=== PATIENT | female | born 1935 | race Caucasian/White ===

== ENCOUNTER → 2016-11-29 | Outpatient (RCR) | payer MEDICARE ==
--- OUTSIDE RECORDS SUMMARY | 2016-08-31 14:06 | XMS REPORT | Continuity of Care Document ---
Author Author [facility] Organization [facility] Address Unknown Phone Unavailable Care Team Providers Care Cinder Man Name Role Phone SURESH ROUSE MD PCP Insurance Providers Payer Name Policy Number Subscriber Name Relationship Wps Medicare [id number] Argelia Prajapati 18 Self / Same As Patient Blue [employer] [facility] Supp [id number] Argelia Prajapati 18 Self / Same As Patient Advance Directives Directive Response Recorded Date/Time Advance Directives Yes 09/02/12 3:00pm Health Care Power of Bus Person Yes 08/26/12 2:30pm Organ Donor Yes 08/26/12 2:30pm Problems No known problems or medical conditions. Medications Medication Dose Route Sig Days/Qty Instructions Order Date Discontinued Date Status Glipizide 02/08/07 07/05/09 Discontinued Enalapril Maleate 02/08/07 07/05/09 Discontinued Enalapril Maleate 02/08/07 07/05/09 Discontinued [Indapamide] 02/08/07 08/24/09 Discontinued Insulin Human Regular 02/08/07 07/05/09 Discontinued Insulin Human NPH 02/08/07 07/05/09 Discontinued Insulin Human Regular 15 U SQ DAILY 15 U IN AM 07/05/09 Active Insulin Nph Human Recom 10 U SQ PRN 07/05/09 09/07/12 Discontinued Enalapril Maleate 07/05/09 06/08/10 Discontinued Enalapril Maleate 20 Mg PO DAILY 07/05/09 Active Indapamide 1.25 Mg PO DAILY 08/24/09 Active Colestipol Hcl 1 Gm PO DAILY 08/24/09 Active Omeprazole 08/24/09 06/08/10 Discontinued Ondansetron 08/24/09 06/08/10 Discontinued Omeprazole 1 Cap PO DAILY 30 Qty 10/02/11 Active Promethazine HCl 12.5 Mg PO EVERY 6 HOURS PRN 15 Qty 10/02/11 Active Insulin Glargine 35 Units SQ BEDTIME 09/07/12 Active Trimethoprim/Sulfamethoxazole 1 Ea PO TWICE A DAY 10 Days 09/07/12 Active Social History Social History Problem Response Recorded Date/Time Recent Foreign Travel N [place] 11/19/2014 2:27pm Hospital Discharge Instructions No hospital discharge instructions. Plan of Care No plan of care. Functional Status No functional status results. Allergies, Adverse Reactions, Alerts Allergen Type Severity Reaction Status Last Updated Penicillins ([id number]) Allergy Unknown RASH Active 02/08/07 Morphine Allergy Unknown N/V Active 02/10/07 Codeine Allergy Mild VOMITING Active 07/05/09 Immunizations Name Given Type Date of Pneumonia Vaccine 08/29/12 Historical Date of Influenza Vaccine 08/29/12 Historical Vital Signs No known vital signs results. Results Laboratory Results Test Name Result Units Flags Reference Collection Date/Time Result Date/ Time Comments White Blood Count 6.0 10^3/uL 4.3-11.0 01/15/2015 1:17pm 01/15/2015 1: 23pm Red Blood Count 4.38 10^6/uL 4.35-5.85 01/15/2015 1:01/15/2015 1: 23pm Hemoglobin 12.8 G/DL 11.5-16.0 01/15/2015 1:01/15/2015 1:23pm Hematocrit 38 % 35-52 01/15/2015 1:pm 01/15/2015 1:23pm Mean Corpuscular Volume 86 FL 80-99 01/15/2015 1:pm 01/15/2015 1: 23pm Mean Corpuscular Hemoglobin 29 PG 25-34 01/15/2015 1:17pm 01/15/2015 1: 23pm Mean Corpuscular Hemoglobin Concent 34 G/DL 32-36 01/15/2015 1:pm 09/2015 1:23pm Red Cell Distribution Width 13.5 % 10.0-14.5 01/15/2015 1:172014 1:23pm Platelet Count 137 10^3/uL 130-400 01/15/2015 1:01/15/2015 1:23pm Mean Platelet Volume 12.5 FL H 7.4-10.4 01/15/2015 1:pm 01/15/2015 1: 23pm Neutrophils (%) (Auto) 79 % H 42-75 01/15/2015 1:01/15/2015 1:23pm Lymphocytes (%) (Auto) 13 % 12-44 01/15/2015 1:pm 01/15/2015 1:23pm Monocytes (%) (Auto) 7 % 0-12 01/15/2015 1:pm 01/15/2015 1:23pm Eosinophils (%) (Auto) 1 % 0-10 01/15/2015 1:17pm 01/15/2015 1:23pm Basophils (%) (Auto) 0 % 0-10 01/15/2015 1:01/15/2015 1:23pm Neutrophils # (Auto) 4.8 X 10^3 1.8-7.8 01/15/2015 1:pm 01/15/2015 1: 23pm Lymphocytes # (Auto) 0.8 X 10^3 L 1.0-4.0 01/15/2015 1:pm 01/15/2015 1: 23pm Monocytes # (Auto) 0.4 X 10^3 0.0-1.0 01/15/2015 1:pm 01/15/2015 1: 23pm Eosinophils # (Auto) 0.0 10^3/uL 0.0-0.3 01/15/2015 1:pm 01/15/2015 1 :23pm Basophils # (Auto) 0.0 10^3/uL 0.0-0.1 01/15/2015 1:pm 01/15/2015 1: 23pm Sodium Level 137 MMOL/L 135-145 01/15/2015 1:pm 01/15/2015 2:00pm Potassium Level 3.7 MMOL/L 3.6-5.0 01/15/2015 1:01/15/2015 2:00pm Chloride Level 104 MMOL/L 98-107 01/15/2015 1:pm 01/15/2015 2:00pm Carbon Dioxide Level 23 MMOL/L 21-32 01/15/2015 1:pm 01/15/2015 2: 00pm Blood Urea Nitrogen 14 MG/DL 7-18 01/15/2015 1:pm 01/15/2015 2:00pm Creatinine 1.02 MG/DL 0.60-1.30 01/15/2015 1:pm 01/15/2015 2:00pm BUN/Creatinine Ratio 14 01/15/2015 1:pm 01/15/2015 2:00pm Estimat Glomerular Filtration Rate 52 01/15/2015 1:pm 01/15/2015 2:00pm GFR INTERPRETIVE DATA UNITS FOR ESTIMATED GFR (eGFR): mL/min/1.73 M2 REFERENCE RANGE FOR ESTIMATED GFR (eGFR) eGFR NORMAL eGFR >60 MODERATELY DECREASED eGFR 30-59 SEVERLY DECREASED eGFR 15-29 KIDNEY FAILURE <15 (OR DIALYSIS) Glucose Level 282 MG/DL H 70-105 01/15/2015 1:pm 01/15/2015 2:00pm Calcium Level 9.4 MG/DL 8.5-10.1 01/15/2015 1:pm 01/15/2015 2:00pm Total Bilirubin 0.5 MG/DL 0.1-1.0 01/15/2015 1:pm 01/15/2015 2:00pm Alkaline Phosphatase 77 U/L 40-136 01/15/2015 1:pm 01/15/2015 2:00pm Aspartate Amino Transf (AST/SGOT) 20 U/L 5-34 01/15/2015 1:pm 2014 2:00pm Alanine Aminotransferase (ALT/SGPT) 23 U/L 0-55 01/15/2015 1:pm 01/15 2:00pm Total Protein 6.5 G/DL 6.4-8.2 01/15/2015 1:pm 01/15/2015 2:00pm Albumin 4.0 G/DL 3.2-4.5 01/15/2015 1:pm 01/15/2015 2:00pm Procedures No known history of procedures. Encounters Encounter Location Date/Time Discharged Recurring Via [facility] 01/15/15 12:58pm
[2016-10-18 13:55] LABS: BASOPHILS % (AUTO) 0 % (0-10); EOSINOPHILS # (AUTO) 0.1 10^3/uL (0.0-0.3); EOSINOPHILS % (AUTO) 2 % (0-10); LYMPHOCYTES # (AUTO) 1.2 X 10^3 (1.0-4.0); LYMPHOCYTES % (AUTO) 23 % (12-44); MEAN CORPUSCULAR HEMOGLOBIN 30 PG (25-34); MEAN CORPUSCULAR HGB CONC 34 G/DL (32-36); MEAN CORPUSCULAR VOLUME 87 FL (80-99); MEAN PLATELET VOLUME 12.2 FL (7.4-10.4); MONOCYTES # (AUTO) 0.4 X 10^3 (0.0-1.0); MONOCYTES % (AUTO) 8 % (0-12); NEUTROPHILS # (AUTO) 3.6 X 10^3 (1.8-7.8); NEUTROPHILS % (AUTO) 67 % (42-75); PLATELET COUNT 102 10^3/uL (130-400); RED BLOOD COUNT 4.37 10^6/uL (4.35-5.85); RED CELL DISTRIBUTION WIDTH 13.5 % (10.0-14.5); WHITE BLOOD COUNT 5.4 10^3/uL (4.3-11.0)
[2016-10-18 14:24] LABS: ALBUMIN 4.3 G/DL (3.2-4.5); BILIRUBIN,TOTAL 0.5 MG/DL (0.1-1.0); CALCIUM 9.6 MG/DL (8.5-10.1); CREATININE SERUM 0.95 MG/DL (0.60-1.30); POTASSIUM 3.5 MMOL/L (3.6-5.0); TOTAL PROTEIN 6.5 G/DL (6.4-8.2)
[~2016-11-29] MED LIST: COLE1TAB PO; ENAL20TA; ENLP10T; ENLP10T PO; GLIP-123; INDA1.25 PO; INDAPAMIDE; INSHRV; INSHRV SQ; INSN1U SQ; INSU100C4 SQ; INSU100V11; INSU100V13 SQ; NPH,100V SQ; OMEP20CA12 PO; OMEP20CA6; ONDA4TAB11; PRM25T PO; SCR1T1 PO; SULF1TAB38 PO
== END | disposition home or self-care (01) ==
LOC: ONC 08-31 14:03
PROVIDERS: ATTEND Internal Medicine Hematology & Oncology
DX: Z08 Encounter for follow-up examination after completed treatment for malignant neoplasm (principal); Z85.42 Personal history of malignant neoplasm of other parts of uterus; Z85.3 Personal history of malignant neoplasm of breast; Z79.899 Other long term (current) drug therapy; Z45.2 Encounter for adjustment and management of vascular access device
CPT/HCPCS: 36591; 80053; 85025; 86300; 86304; 96523; 99213

== ENCOUNTER → 2017-01-10 | Outpatient (CLI) | payer MEDICARE ==
--- OUTSIDE RECORDS SUMMARY | 2017-01-10 13:34 | XMS REPORT | Continuity of Care Document ---
Author Author [facility] Organization [facility] Address Unknown Phone Unavailable Care Team Providers Care Tariff Inspector Name Role Phone SURESH ROUSE MD PCP Insurance Providers Payer Name Policy Number Subscriber Name Relationship Wps Medicare [id number] Argelia Prajapati 18 Self / Same As Patient Blue Cross [facility] Supp [id number] Argelia Prajapati 18 Self / Same As Patient Advance Directives Directive Response Recorded Date/Time Advance Directives Yes 09/02/12 3:00pm Health Care Power of Therapy Assistant Yes 08/26/12 2:30pm Organ Donor Yes 08/26/12 [...] Type Severity Reaction Status Last Updated Penicillins ([id number]) Allergy Unknown RASH Active 02/08/07 Morphine Allergy [...] Encounters Encounter Location Date/Time Discharged Recurring Via [facility] 01/15/15 12:58pm
== END ==
LOC: LAB 13:31
PROVIDERS: ATTEND Family Medicine
DX: E11.9 Type 2 diabetes mellitus without complications (principal)
CPT/HCPCS: 83036

== ENCOUNTER 2017-03-28 12:44 | Outpatient (RCR) | payer MEDICARE ==
--- OUTSIDE RECORDS SUMMARY | 2017-01-10 13:28 | XMS REPORT | Continuity of Care Document ---
Author Author [facility] Organization [facility] Address Unknown Phone Unavailable Care Team Providers Care Solution Manager Name Role Phone SURESH ROUSE MD PCP Insurance Providers Payer Name Policy Number Subscriber Name Relationship Wps Medicare [id number] Argelia Prajapati 18 Self / Same As Patient Blue Cross [facility] Supp [id number] Argelia Prajapati 18 Self / Same As Patient Advance Directives Directive Response Recorded Date/Time Advance Directives Yes 09/02/12 3:00pm Health Care Power of Acetylene Operator Yes 08/26/12 2:30pm Organ Donor Yes 08/26/12 [...] Type Severity Reaction Status Last Updated Penicillins ([id number]) Allergy Unknown RASH Active 02/08/07 Morphine Allergy [...] Encounters Encounter Location Date/Time Discharged Recurring Via [facility] 01/15/15 12:58pm
[2017-01-10 13:41] LABS: BASOPHILS % (AUTO) 0 % (0-10); EOSINOPHILS # (AUTO) 0.1 10^3/uL (0.0-0.3); EOSINOPHILS % (AUTO) 2 % (0-10); LYMPHOCYTES # (AUTO) 1.1 X 10^3 (1.0-4.0); LYMPHOCYTES % (AUTO) 21 % (12-44); MEAN CORPUSCULAR HEMOGLOBIN 29 PG (25-34); MEAN CORPUSCULAR HGB CONC 33 G/DL (32-36); MEAN CORPUSCULAR VOLUME 88 FL (80-99); MEAN PLATELET VOLUME 12.5 FL (7.4-10.4); MONOCYTES # (AUTO) 0.4 X 10^3 (0.0-1.0); MONOCYTES % (AUTO) 8 % (0-12); NEUTROPHILS # (AUTO) 3.8 X 10^3 (1.8-7.8); NEUTROPHILS % (AUTO) 70 % (42-75); PLATELET COUNT 81 10^3/uL (130-400); RED BLOOD COUNT 4.28 10^6/uL (4.35-5.85); RED CELL DISTRIBUTION WIDTH 13.7 % (10.0-14.5); WHITE BLOOD COUNT 5.4 10^3/uL (4.3-11.0)
[2017-01-10 14:18] LABS: BILIRUBIN,TOTAL 0.4 MG/DL (0.1-1.0); CALCIUM 9.2 MG/DL (8.5-10.1); CREATININE SERUM 1.01 MG/DL (0.60-1.30); POTASSIUM 3.9 MMOL/L (3.6-5.0); TOTAL PROTEIN 6.5 G/DL (6.4-8.2)
[2017-03-28 13:01] LABS: BASOPHILS % (AUTO) 0 % (0-10); EOSINOPHILS # (AUTO) 0.2 10^3/uL (0.0-0.3); EOSINOPHILS % (AUTO) 3 % (0-10); LYMPHOCYTES # (AUTO) 1.6 X 10^3 (1.0-4.0); LYMPHOCYTES % (AUTO) 27 % (12-44); MEAN CORPUSCULAR HEMOGLOBIN 30 PG (25-34); MEAN CORPUSCULAR HGB CONC 33 G/DL (32-36); MEAN CORPUSCULAR VOLUME 89 FL (80-99); MEAN PLATELET VOLUME 12.3 FL (7.4-10.4); MONOCYTES # (AUTO) 0.4 X 10^3 (0.0-1.0); MONOCYTES % (AUTO) 7 % (0-12); NEUTROPHILS # (AUTO) 3.8 X 10^3 (1.8-7.8); NEUTROPHILS % (AUTO) 64 % (42-75); PLATELET COUNT 109 10^3/uL (130-400); RED BLOOD COUNT 4.24 10^6/uL (4.35-5.85); RED CELL DISTRIBUTION WIDTH 13.5 % (10.0-14.5); WHITE BLOOD COUNT 5.9 10^3/uL (4.3-11.0)
[2017-03-28 13:24] LABS: ALANINE AMINOTRANSFERASE 14 U/L (0-55); ALBUMIN 4.1 G/DL (3.2-4.5); ANION GAP 10 MMOL/L (5-14); ASPARTATE AMINO TRANSFERASE 19 U/L (5-34); BILIRUBIN,TOTAL 0.5 MG/DL (0.1-1.0); BLOOD UREA NITROGEN 13 MG/DL (7-18); BUN/CREATININE RATIO 15; CALCIUM 9.3 MG/DL (8.5-10.1); CARBON DIOXIDE 23 MMOL/L (21-32); CHLORIDE 108 MMOL/L (98-107); CREATININE SERUM 0.88 MG/DL (0.60-1.30); GFR ESTIMATED > 60; GLUCOSE 190 MG/DL (70-105); POTASSIUM 3.6 MMOL/L (3.6-5.0); SODIUM 141 MMOL/L (135-145); TOTAL PROTEIN 6.5 G/DL (6.4-8.2)
[2017-03-28 13:44] LABS: THYROID STIMULATING HORMONE 0.95 UIU/ML (0.35-4.94)
== END 2017-04-10 | disposition home or self-care (01) ==
LOC: ONC 12:44
PROVIDERS: ATTEND Internal Medicine Hematology & Oncology
DX: Z08 Encounter for follow-up examination after completed treatment for malignant neoplasm (principal); Z85.42 Personal history of malignant neoplasm of other parts of uterus; Z85.3 Personal history of malignant neoplasm of breast; Z79.899 Other long term (current) drug therapy; Z45.2 Encounter for adjustment and management of vascular access device
CPT/HCPCS: 36591; 80053; 84443; 85025; 86300; 86304; 96523; 99213

== ENCOUNTER → 2017-05-02 | Outpatient (CLI) | payer MEDICARE ==
--- NOTE | 2017-05-02 13:42 | Diagnostic Imaging Report ---
Two views of the left hip. INDICATION: Left hip pain. FINDINGS: There is severe joint space loss and the left hip particularly along the central and lateral aspect with subchondral sclerosis and subchondral cyst formation. Minimal osteophytes are noted. No fracture or dislocation. No radiopaque foreign body. IMPRESSION: Advanced left hip osteoarthritis. Dictated by: Dictated on workstation # [id number]
== END ==
LOC: RAD 13:16
PROVIDERS: ATTEND Nurse Practitioner Family
DX: M16.12 Unilateral primary osteoarthritis, left hip (principal)
CPT/HCPCS: 73502

== ENCOUNTER 2017-07-18 10:42 | Outpatient (RCR) | payer MEDICARE | END 2017-08-04 13:28 | disposition home or self-care (01) | LOC: ONC 10:42 | PROVIDERS: ATTEND Internal Medicine Hematology & Oncology | DX: Z08 Encounter for follow-up examination after completed treatment for malignant neoplasm (principal); Z85.42 Personal history of malignant neoplasm of other parts of uterus; Z85.3 Personal history of malignant neoplasm of breast; Z79.899 Other long term (current) drug therapy; Z45.2 Encounter for adjustment and management of vascular access device | CPT/HCPCS: 96523 ==

== ENCOUNTER 2017-09-23 10:57 | Outpatient (RCR) | payer MEDICARE ==
[2017-08-09 13:24] LABS: BASOPHILS % (AUTO) 0 % (0-10); EOSINOPHILS # (AUTO) 0.1 10^3/uL (0.0-0.3); EOSINOPHILS % (AUTO) 2 % (0-10); HEMATOCRIT 37 % (35-52); HEMOGLOBIN 12.6 G/DL (11.5-16.0); LYMPHOCYTES # (AUTO) 1.1 X 10^3 (1.0-4.0); LYMPHOCYTES % (AUTO) 21 % (12-44); MEAN CORPUSCULAR HEMOGLOBIN 30 PG (25-34); MEAN CORPUSCULAR HGB CONC 34 G/DL (32-36); MEAN CORPUSCULAR VOLUME 89 FL (80-99); MEAN PLATELET VOLUME 12.8 FL (7.4-10.4); MONOCYTES # (AUTO) 0.4 X 10^3 (0.0-1.0); MONOCYTES % (AUTO) 7 % (0-12); NEUTROPHILS # (AUTO) 3.7 X 10^3 (1.8-7.8); NEUTROPHILS % (AUTO) 70 % (42-75); PLATELET COUNT 121 10^3/uL (130-400); RED BLOOD COUNT 4.17 10^6/uL (4.35-5.85); RED CELL DISTRIBUTION WIDTH 13.5 % (10.0-14.5); WHITE BLOOD COUNT 5.3 10^3/uL (4.3-11.0)
[2017-08-09 13:45] LABS: BILIRUBIN,TOTAL 0.4 MG/DL (0.1-1.0); CALCIUM 9.3 MG/DL (8.5-10.1); CREATININE SERUM 0.99 MG/DL (0.60-1.30); POTASSIUM 3.8 MMOL/L (3.6-5.0); TOTAL PROTEIN 6.7 GM/DL (6.4-8.2)
== END 2017-11-07 | disposition home or self-care (01) ==
LOC: ONC 10:57
PROVIDERS: ATTEND Internal Medicine Hematology & Oncology
DX: Z08 Encounter for follow-up examination after completed treatment for malignant neoplasm (principal); Z85.42 Personal history of malignant neoplasm of other parts of uterus; Z85.3 Personal history of malignant neoplasm of breast; D69.6 Thrombocytopenia, unspecified; E11.9 Type 2 diabetes mellitus without complications; I10 Essential (primary) hypertension; I51.7 Cardiomegaly; E04.2 Nontoxic multinodular goiter; Z90.13 Acquired absence of bilateral breasts and nipples; Z90.710 Acquired absence of both cervix and uterus; Z92.21 Personal history of antineoplastic chemotherapy; Z79.899 Other long term (current) drug therapy; Z45.2 Encounter for adjustment and management of vascular access device
CPT/HCPCS: 36415; 36591; 80053; 84443; 85025; 96523

== ENCOUNTER 2018-01-17 13:07 | Outpatient (RCR) | payer MEDICARE ==
[2018-01-17 13:32] LABS: BASOPHILS % (AUTO) 0 % (0-10); EOSINOPHILS # (AUTO) 0.1 10^3/uL (0.0-0.3); EOSINOPHILS % (AUTO) 1 % (0-10); HEMATOCRIT 37 % (35-52); HEMOGLOBIN 12.6 G/DL (11.5-16.0); LYMPHOCYTES # (AUTO) 1.1 X 10^3 (1.0-4.0); LYMPHOCYTES % (AUTO) 19 % (12-44); MEAN CORPUSCULAR HEMOGLOBIN 30 PG (25-34); MEAN CORPUSCULAR HGB CONC 35 G/DL (32-36); MEAN CORPUSCULAR VOLUME 88 FL (80-99); MEAN PLATELET VOLUME 12.6 FL (7.4-10.4); MONOCYTES # (AUTO) 0.4 X 10^3 (0.0-1.0); MONOCYTES % (AUTO) 7 % (0-12); NEUTROPHILS # (AUTO) 4.2 X 10^3 (1.8-7.8); NEUTROPHILS % (AUTO) 73 % (42-75); PLATELET COUNT 112 10^3/uL (130-400); RED BLOOD COUNT 4.14 10^6/uL (4.35-5.85); RED CELL DISTRIBUTION WIDTH 13.2 % (10.0-14.5); WHITE BLOOD COUNT 5.8 10^3/uL (4.3-11.0)
[2018-01-17 13:54] LABS: BILIRUBIN,TOTAL 0.7 MG/DL (0.1-1.0); CALCIUM 9.3 MG/DL (8.5-10.1); CREATININE SERUM 0.92 MG/DL (0.60-1.30); POTASSIUM 3.7 MMOL/L (3.6-5.0); TOTAL PROTEIN 6.4 GM/DL (6.4-8.2)
== END 2018-02-13 | disposition home or self-care (01) ==
LOC: ONC 13:07
PROVIDERS: ATTEND Internal Medicine Hematology & Oncology
DX: Z08 Encounter for follow-up examination after completed treatment for malignant neoplasm (principal); Z85.42 Personal history of malignant neoplasm of other parts of uterus; Z85.3 Personal history of malignant neoplasm of breast; Z45.2 Encounter for adjustment and management of vascular access device
CPT/HCPCS: 36591; 80053; 85025; 96523

== ENCOUNTER → 2018-05-30 | Outpatient (RCR) | payer MEDICARE | END | disposition home or self-care (01) | LOC: ONC 03-01 13:50 | PROVIDERS: ATTEND Internal Medicine Hematology & Oncology | DX: Z08 Encounter for follow-up examination after completed treatment for malignant neoplasm (principal); Z85.42 Personal history of malignant neoplasm of other parts of uterus; Z85.3 Personal history of malignant neoplasm of breast; Z45.2 Encounter for adjustment and management of vascular access device | CPT/HCPCS: 96523 ==

== ENCOUNTER 2018-07-04 12:57 | Outpatient (RCR) | payer MEDICARE ==
[2018-07-04 13:11] LABS: BASOPHILS % (AUTO) 0 % (0-10); EOSINOPHILS # (AUTO) 0.1 10^3/uL (0.0-0.3); EOSINOPHILS % (AUTO) 2 % (0-10); HEMATOCRIT 36 % (35-52); HEMOGLOBIN 12.4 G/DL (11.5-16.0); LYMPHOCYTES # (AUTO) 1.2 X 10^3 (1.0-4.0); LYMPHOCYTES % (AUTO) 21 % (12-44); MEAN CORPUSCULAR HEMOGLOBIN 31 PG (25-34); MEAN CORPUSCULAR HGB CONC 34 G/DL (32-36); MEAN CORPUSCULAR VOLUME 89 FL (80-99); MEAN PLATELET VOLUME 12.7 FL (7.4-10.4); MONOCYTES # (AUTO) 0.3 X 10^3 (0.0-1.0); MONOCYTES % (AUTO) 6 % (0-12); NEUTROPHILS % (AUTO) 71 % (42-75); PLATELET COUNT 95 10^3/uL (130-400); RED BLOOD COUNT 4.05 10^6/uL (4.35-5.85); RED CELL DISTRIBUTION WIDTH 13.3 % (10.0-14.5); WHITE BLOOD COUNT 5.6 10^3/uL (4.3-11.0)
[2018-07-04 13:46] LABS: ALBUMIN 4.2 GM/DL (3.2-4.5); BILIRUBIN,TOTAL 0.5 MG/DL (0.1-1.0); CALCIUM 9.6 MG/DL (8.5-10.1); CREATININE SERUM 1.03 MG/DL (0.60-1.30); TOTAL PROTEIN 6.6 GM/DL (6.4-8.2)
== END 2018-07-07 | disposition home or self-care (01) ==
LOC: ONC 12:57
PROVIDERS: ATTEND Internal Medicine Hematology & Oncology
DX: Z08 Encounter for follow-up examination after completed treatment for malignant neoplasm (principal); Z85.42 Personal history of malignant neoplasm of other parts of uterus; Z85.3 Personal history of malignant neoplasm of breast; D69.59 Other secondary thrombocytopenia; T45.1X5S Adverse effect of antineoplastic and immunosuppressive drugs, sequela; E11.9 Type 2 diabetes mellitus without complications; I10 Essential (primary) hypertension; K52.9 Noninfective gastroenteritis and colitis, unspecified; E04.2 Nontoxic multinodular goiter; Z90.13 Acquired absence of bilateral breasts and nipples; Z90.710 Acquired absence of both cervix and uterus; Z79.899 Other long term (current) drug therapy
CPT/HCPCS: 36591; 80053; 85025

== ENCOUNTER 2018-11-14 14:26 | Outpatient (RCR) | payer MEDICARE | END 2018-11-15 | disposition home or self-care (01) | LOC: ONC 14:26 | PROVIDERS: ATTEND Internal Medicine Hematology & Oncology | DX: Z08 Encounter for follow-up examination after completed treatment for malignant neoplasm (principal); Z85.42 Personal history of malignant neoplasm of other parts of uterus; Z85.3 Personal history of malignant neoplasm of breast; D69.59 Other secondary thrombocytopenia; T45.1X5S Adverse effect of antineoplastic and immunosuppressive drugs, sequela; E11.9 Type 2 diabetes mellitus without complications; I10 Essential (primary) hypertension; K52.9 Noninfective gastroenteritis and colitis, unspecified; E04.2 Nontoxic multinodular goiter; Z90.13 Acquired absence of bilateral breasts and nipples; Z90.710 Acquired absence of both cervix and uterus; Z79.899 Other long term (current) drug therapy; Z45.2 Encounter for adjustment and management of vascular access device | CPT/HCPCS: 96523 ==

== ENCOUNTER 2019-03-13 13:12 | Outpatient (RCR) | payer MEDICARE ==
[2018-12-19 13:12] LABS: BASOPHILS % (AUTO) 0 % (0-10); EOSINOPHILS # (AUTO) 0.1 10^3/uL (0.0-0.3); EOSINOPHILS % (AUTO) 1 % (0-10); HEMATOCRIT 37 % (35-52); HEMOGLOBIN 12.5 G/DL (11.5-16.0); LYMPHOCYTES % (AUTO) 17 % (12-44); MEAN CORPUSCULAR HEMOGLOBIN 30 PG (25-34); MEAN CORPUSCULAR HGB CONC 34 G/DL (32-36); MEAN CORPUSCULAR VOLUME 88 FL (80-99); MEAN PLATELET VOLUME 12.6 FL (7.4-10.4); MONOCYTES # (AUTO) 0.4 X 10^3 (0.0-1.0); MONOCYTES % (AUTO) 7 % (0-12); NEUTROPHILS # (AUTO) 4.3 X 10^3 (1.8-7.8); NEUTROPHILS % (AUTO) 75 % (42-75); PLATELET COUNT 101 10^3/uL (130-400); RED CELL DISTRIBUTION WIDTH 13.3 % (10.0-14.5); WHITE BLOOD COUNT 5.7 10^3/uL (4.3-11.0)
[2018-12-19 13:33] LABS: ALBUMIN 4.1 GM/DL (3.2-4.5); BILIRUBIN,TOTAL 0.5 MG/DL (0.1-1.0); CALCIUM 9.4 MG/DL (8.5-10.1); CREATININE SERUM 1.09 MG/DL (0.60-1.30); POTASSIUM 3.5 MMOL/L (3.6-5.0); TOTAL PROTEIN 6.6 GM/DL (6.4-8.2)
== END 2019-03-19 | disposition home or self-care (01) ==
LOC: ONC 13:12
PROVIDERS: ATTEND Internal Medicine Hematology & Oncology
DX: Z08 Encounter for follow-up examination after completed treatment for malignant neoplasm (principal); Z85.42 Personal history of malignant neoplasm of other parts of uterus; Z85.3 Personal history of malignant neoplasm of breast; D69.59 Other secondary thrombocytopenia; T45.1X5S Adverse effect of antineoplastic and immunosuppressive drugs, sequela; E11.9 Type 2 diabetes mellitus without complications; I10 Essential (primary) hypertension; K52.9 Noninfective gastroenteritis and colitis, unspecified; E04.2 Nontoxic multinodular goiter; Z90.13 Acquired absence of bilateral breasts and nipples; Z90.710 Acquired absence of both cervix and uterus; Z79.899 Other long term (current) drug therapy; Z45.2 Encounter for adjustment and management of vascular access device
CPT/HCPCS: 80053; 85025; 96523

== ENCOUNTER 2019-07-19 10:48 | Outpatient (RCR) | payer MEDICARE ==
[2019-06-07 15:09] LABS: BASOPHILS % (AUTO) 0 % (0-10); EOSINOPHILS % (AUTO) 0 % (0-10); HEMATOCRIT 36 % (35-52); HEMOGLOBIN 11.8 G/DL (11.5-16.0); LYMPHOCYTES # (AUTO) 0.8 X 10^3 (1.0-4.0); LYMPHOCYTES % (AUTO) 17 % (12-44); MEAN CORPUSCULAR HEMOGLOBIN 30 PG (25-34); MEAN CORPUSCULAR HGB CONC 33 G/DL (32-36); MEAN CORPUSCULAR VOLUME 90 FL (80-99); MEAN PLATELET VOLUME 12.8 FL (7.4-10.4); MONOCYTES # (AUTO) 0.3 X 10^3 (0.0-1.0); MONOCYTES % (AUTO) 7 % (0-12); NEUTROPHILS # (AUTO) 3.5 X 10^3 (1.8-7.8); NEUTROPHILS % (AUTO) 75 % (42-75); PLATELET COUNT 108 10^3/uL (130-400); RED CELL DISTRIBUTION WIDTH 13.6 % (10.0-14.5); WHITE BLOOD COUNT 4.7 10^3/uL (4.3-11.0)
[2019-06-07 15:30] LABS: ALBUMIN 4.1 GM/DL (3.2-4.5); BILIRUBIN,TOTAL 0.4 MG/DL (0.1-1.0); CALCIUM 9.6 MG/DL (8.5-10.1); CREATININE SERUM 0.94 MG/DL (0.60-1.30); POTASSIUM 3.8 MMOL/L (3.6-5.0); TOTAL PROTEIN 6.4 GM/DL (6.4-8.2)
== END 2019-07-23 | disposition home or self-care (01) ==
LOC: ONC 10:48
PROVIDERS: ATTEND Internal Medicine Hematology & Oncology
DX: Z08 Encounter for follow-up examination after completed treatment for malignant neoplasm (principal); Z85.42 Personal history of malignant neoplasm of other parts of uterus; Z85.3 Personal history of malignant neoplasm of breast; D69.59 Other secondary thrombocytopenia; T45.1X5S Adverse effect of antineoplastic and immunosuppressive drugs, sequela; E11.9 Type 2 diabetes mellitus without complications; I10 Essential (primary) hypertension; K52.9 Noninfective gastroenteritis and colitis, unspecified; E04.2 Nontoxic multinodular goiter; Z90.13 Acquired absence of bilateral breasts and nipples; Z90.710 Acquired absence of both cervix and uterus; Z79.899 Other long term (current) drug therapy; Z45.2 Encounter for adjustment and management of vascular access device
CPT/HCPCS: 36591; 80053; 85025; 96523

== ENCOUNTER → 2019-07-19 | Outpatient (CLI) | payer MEDICARE | LOC: LAB 10:57 | PROVIDERS: ATTEND Family Medicine | DX: E11.9 Type 2 diabetes mellitus without complications (principal) | CPT/HCPCS: 36415; 83036; 84443 ==

== ENCOUNTER 2019-10-11 13:11 | Outpatient (RCR) | payer MEDICARE ==
[2019-10-11] MEDS ORDERED: FLU QUADRIvalent (5+ YOA) 2019-2020 (Cancer Ctr) 0.5 ML IM ONE (13:45)
== END 2019-11-29 | disposition home or self-care (01) ==
LOC: ONC 13:11
PROVIDERS: ATTEND Internal Medicine Hematology & Oncology
DX: Z45.2 Encounter for adjustment and management of vascular access device (principal); Z79.899 Other long term (current) drug therapy; Z23 Encounter for immunization
CPT/HCPCS: 90471; 96523

== ENCOUNTER 2020-01-10 15:01 | Outpatient (RCR) | payer MEDICARE | END 2020-03-02 | disposition home or self-care (01) | LOC: ONC 15:01 | PROVIDERS: ATTEND Internal Medicine Hematology & Oncology | DX: Z45.2 Encounter for adjustment and management of vascular access device (principal); Z79.899 Other long term (current) drug therapy | CPT/HCPCS: 96523 ==

== ENCOUNTER 2021-12-04 14:45 | Inpatient (IN) | payer MEDICARE ==
[~2021-12-04] VITALS: Ht 182 cm; Wt 95.2 kg
[2021-12-04 15:05] LABS: BASOPHILS % (AUTO) 0 % (0-10); EOSINOPHILS % (AUTO) 0 % (0-10); HEMATOCRIT 34 % (35-52); HEMOGLOBIN 10.9 g/dL (11.5-16.0); LYMPHOCYTES # (AUTO) 0.5 10^3/uL (1.0-4.0); LYMPHOCYTES % (AUTO) 5 % (12-44); MEAN CORPUSCULAR HEMOGLOBIN 29 pg (25-34); MEAN CORPUSCULAR HGB CONC 32 g/dL (32-36); MEAN CORPUSCULAR VOLUME 89 fL (80-99); MEAN PLATELET VOLUME 11.8 fL (9.0-12.2); MONOCYTES # (AUTO) 0.6 10^3/uL (0.0-1.0); MONOCYTES % (AUTO) 6 % (0-12); NEUTROPHILS # (AUTO) 7.8 10^3/uL (1.8-7.8); NEUTROPHILS % (AUTO) 88 % (42-75); PLATELET COUNT 231 10^3/uL (130-400); WHITE BLOOD COUNT 8.8 10^3/uL (4.3-11.0)
[2021-12-04 15:14] LABS: ALBUMIN 3.4 GM/DL (3.2-4.5)
[2021-12-04 15:17] LABS: TOTAL PROTEIN 6.9 GM/DL (6.4-8.2)
[2021-12-04 15:18] LABS: BILIRUBIN,TOTAL 0.5 MG/DL (0.1-1.0)
--- NOTE | 2021-12-04 15:19 | ED Lower Extremity ---
General Chief Complaint: Lower Extremity Stated Complaint: R FOOT WOUND Nursing Triage Note: PT PRESENTS TO ED VIA EMS FROM HOME WITH COMPLAINTS OF R FOOT WOUND THAT DESPITE ORAL ANTIBIOTICS X 2 WEEKS HAS NOT IMPROVED. Source: patient Exam Limitations: no limitations History of Present Illness Date Seen by Provider: Dec 04, 2021 Time Seen by Provider: 15:16 Initial Comments 86-year-old female patient of Dr. HORVATH who lives at home with diabetes presents to ER by EMS after being called by home health with reports of a wound to the medial aspect of the right foot over the first MTP joint. Onset: just prior to arrival Severity: moderate Pain/Injury Location: right foot Modifying Factors: Improves With Cold Therapy Allergies and Home Medications Allergies Coded Allergies: codeine (Unverified Allergy, Mild, VOMITING, 07/05/09) Penicillins (Unverified Allergy, Unknown, RASH, 02/08/07) STATES ITCHED AND "DROVE HER CRAZY" morphine (Verified Allergy, Unknown, N/V, 02/10/07) orange (Unverified Adverse Reaction, Unknown, 09/17/16) Patient Home Medication List Home Medication List Reviewed: Yes Colestipol Hcl (Colestipol Hcl) 1 Gm Tablet, 1 GM PO DAILY, (Reported) Entered as Reported by: RAMESH MACDONALD on 08/24/09 1700 Enalapril Maleate (Vasotec Po) 10 Mg Tab, 20 MG PO DAILY, (Reported) Entered as Reported by: GILBERT WALTERS on 07/05/09 1620 Indapamide (Indapamide) 1.25 Mg Tablet, 1.25 MG PO DAILY PRN for SYSTOLIC BLOOD PRESSURE, (Reported) Entered as Reported by: RAMESH MACDONALD on 08/24/09 1700 Insulin Human Regular (Novolin R Vial) 10 Unit/0.1 Ml Soln, 10 U SQ BID, (Reported) Entered as Reported by: GILBERT WALTERS on 07/05/09 1619 Insulin NPH Human Isophane (Novolin N) 100 Unit/1 Ml Vial, 10 UNIT SQ BID, (Reported) Entered as Reported by: ANALI WORTHY on 09/17/16 1836 Omeprazole (Omeprazole) 20 Mg Capsule., 1 CAP PO DAILY, (Reported) Entered as Reported by: JASIEL PETERS on 10/02/11 0906 Review of Systems Constitutional: see HPI EENTM: see HPI Respiratory: no symptoms reported Cardiovascular: no symptoms reported Genitourinary: no symptoms reported Musculoskeletal: see HPI Skin: no symptoms reported Psychiatric/Neurological: No Symptoms Reported Past Auuknrs-Wxopor-Emqthd Hx Patient Social History Tobacco Use?: No Substance use?: No Alcohol Use?: No Pt feels they are or have been: No Immunizations Up To Date Influenza Vaccine Up-to-Date: Yes; Up-to-Date First/Initial COVID19 Vaccinat: 12/28 Second COVID19 Vaccination Srini: 01/25 COVID19 Vaccine Hot [employer]orer: moderna Seasonal Allergies Seasonal Allergies: No Past Medical History Surgery/Hospitalization HX: pmh: dm, bp, c-diff sx: hyst, gallbladder, r hip Abdominal, Breast, Gallbladder Hypertension Reproductive Disorders: Yes Gastroesophageal Reflux Diabetes, Non-Insulin dep Breast Physical Exam Vital Signs Vital Signs - First Documented 12/04/21 14:57 Temp 36.6 Pulse 104 Resp 18 B/P (MAP) 172/73 (106) Pulse Ox 100 Capillary Refill : Less Than 3 Seconds Height, Weight, BMI Height: 6'" Weight: 240lbs. oz. 108.969318be; 29.00 BMI Method:Stated General Appearance: WD/WN, no apparent distress Neck: non-tender, full range of motion Respiratory: normal breath sounds, no respiratory distress, no accessory muscle use Hips: bilateral hip non-tender, bilateral hip normal inspection, bilateral hip normal range of motion Legs: bilateral leg non-tender, bilateral leg normal inspection, bilateral leg normal range of motion Knees: bilateral knee non-tender, bilateral knee normal inspection, bilateral knee normal range of motion Ankles: bilateral ankle non-tender, bilateral ankle normal inspection, bilateral ankle normal range of motion Feet: left foot other (She denies any pain but there is a rather large ulcer to the medial aspect of the left foot with exposed open fracture of the first phalanx. Culture was collected.) Progress/Results/Core Measures Results/Orders Lab Results Laboratory Tests Test 12/04/21 14:52 12/04/21 15:00 Range/Units White Blood Count 8.8 4.3-11.0 10^3/uL Red Blood Count 3.80 3.80-5.11 10^6/uL Hemoglobin 10.9 L 11.5-16.0 g/dL Hematocrit 34 L 35-52 % Mean Corpuscular Volume 89 80-99 fL Mean Corpuscular Hemoglobin 29 25-34 pg Mean Corpuscular Hemoglobin Concent 32 32-36 g/dL Red Cell Distribution Width 13.4 10.0-14.5 % Platelet Count 231 130-400 10^3/uL Mean Platelet Volume 11.8 9.0-12.2 fL Immature Granulocyte % (Auto) 0 % Neutrophils (%) (Auto) 88 H 42-75 % Lymphocytes (%) (Auto) 5 L 12-44 % Monocytes (%) (Auto) 6 0-12 % Eosinophils (%) (Auto) 0 0-10 % Basophils (%) (Auto) 0 0-10 % Neutrophils # (Auto) 7.8 1.8-7.8 10^3/uL Lymphocytes # (Auto) 0.5 L 1.0-4.0 10^3/uL Monocytes # (Auto) 0.6 0.0-1.0 10^3/uL Eosinophils # (Auto) 0.0 0.0-0.3 10^3/uL Basophils # (Auto) 0.0 0.0-0.1 10^3/uL Immature Granulocyte # (Auto) 0.0 0.0-0.1 10^3/uL Neutrophils % (Manual) 89 % Lymphocytes % (Manual) 5 % Monocytes % (Manual) 5 % Eosinophils % (Manual) 1 % Blood Morphology Comment NORMAL Prothrombin Time 14.3 12.2-14.7 SEC INR Comment 1.1 0.8-1.4 Activated Partial Thromboplast Time 36 H 24-35 SEC Sodium Level 137 135-145 MMOL/L Potassium Level 4.0 3.6-5.0 MMOL/L Chloride Level 102 98-107 MMOL/L Carbon Dioxide Level 22 21-32 MMOL/L Anion Gap 13 5-14 MMOL/L Blood Urea Nitrogen 16 7-18 MG/DL Creatinine 0.96 0.60-1.30 MG/DL Estimat Glomerular Filtration Rate 58 BUN/Creatinine Ratio 17 Glucose Level 269 H 70-105 MG/DL Calcium Level 9.0 8.5-10.1 MG/DL Corrected Calcium 9.5 8.5-10.1 MG/DL Total Bilirubin 0.5 0.1-1.0 MG/DL Aspartate Amino Transf (AST/SGOT) 14 5-34 U/L Alanine Aminotransferase (ALT/SGPT) 9 0-55 U/L Alkaline Phosphatase 90 40-136 U/L Total Protein 6.9 6.4-8.2 GM/DL Albumin 3.4 3.2-4.5 GM/DL Lactic Acid Level 2.48 *H 0.50-2.00 MMOL/L My Orders Orders - BRIAN TAVARES APRN Cbc With Automated Diff (12/04/21 14:57) Comprehensive Metabolic Panel (12/04/21 14:57) Blood Culture (12/04/21 14:57) Sputum Culture (12/04/21 14:57) Urinalysis (12/04/21 14:57) Urine Culture (12/04/21 14:57) Protime With Inr (12/04/21 14:57) Partial Thromboplastin Time (12/04/21 14:57) Chest 1 View, Ap/Pa Only (12/04/21 14:57) Ed Iv/Invasive Line Start (12/04/21 14:57) Ed Iv/Invasive Line Start (12/04/21 14:57) Vital Signs Adult Sepsis Patie Q15M (12/04/21 14:57) O2 (12/04/21 14:57) Remove Rings In Anticipation O (12/04/21 14:57) Lactic Acid Analyzer (12/04/21 14:57) Manual Differential (12/04/21 14:52) Foot, Right, 3 View (12/04/21 15:12) Wound Culture (12/04/21 15:45) Us Right Low Ext [id number] (12/04/21 16:25) Vital Signs/I&O 12/04/21 14:57 Temp 36.6 Pulse 104 Resp 18 B/P (MAP) 172/73 (106) Pulse Ox 100 Blood Pressure Mean: 106 Departure Communication (Admissions) Family Conversation [facility] [place] [place] NAME: PERFECTO PRAJAPATI [facility] REC#: [id number] PT STATUS: REG ER : 1935 PHYSICIAN: BRIAN TAVARES APRN ADMIT DATE: 12/04/21/ER Draft Date of Exam:12/04/21 FOOT, RIGHT, 3 VIEW INDICATION: Osteomyelitis. AP, oblique, and lateral views of the right foot are obtained. There is no previous study for comparison. FINDINGS: There is generalized osteopenia. There is diffuse degenerative change throughout the tarsal joints and interphalangeal joints. There is joint space narrowing of the first MTP joint. There is bony erosion of the medial portion of the first metatarsal head distally, compatible with osteomyelitis. There is a faint area of lucency in the calcaneus, which is of uncertain age. IMPRESSION: Generalized osteopenia and diffuse degenerative changes. Erosive bony lesion involving the first metatarsal head medially, with overlying skin ulceration. The findings are compatible with osteomyelitis. There is an ill-defined area of lucency in the calcaneus, which is of indeterminate age. Dictated on workstation # [id number] Dict: 12/04/21 1525 Trans: 12/04/21 1529 [id number] Interpreted by: LAURA LOVE MD Electronically signed by: I spoke with Dr. Salinas, tentatively we will plan for a transmetatarsal amputation tomorrow after being n.p.o. after midnight. 1633-I discussed CODE STATUS with her. She states that she is a DO NOT RESUSCITATE status. She thinks that we have one on file here at the hospital. She also does not think she can get up even to a bedside commode. I discussed with her that we will get her to a bedpan. However given her immobility if she needs a Saywer catheter that would be acceptable as well. I spoke with Dr. Tyler lang on-call for Dr. Horvath who agrees to admit. Impression Primary Impression: Osteomyelitis Additional Impression: Diabetic ulcer of foot associated with diabetes mellitus due to underlying condition, with necrosis of bone Disposition: ADMITTED INPATIENT Condition: Stable Admissions Decision to Admit Reason: Admit from ER (General) Decision to Admit/Date: Dec 04, 2021 Time/Decision to Admit Time: 15:47 Departure-Patient Inst. Referrals: JANNIE HORVATH MD (PCP/Family) Primary Care Physician BRIAN TAVARES APRN Dec 04, 2021 15:19
[2021-12-04 15:20] LABS: CREATININE SERUM 0.96 MG/DL (0.60-1.30)
[2021-12-04 15:24] LABS: INR 1.1 (0.8-1.4); PROTHROMBIN TIME PATIENT 14.3 SEC (12.2-14.7)
--- NOTE | 2021-12-04 15:29 | Diagnostic Imaging Report ---
INDICATION: Osteomyelitis. AP, oblique, and lateral views of the right foot are obtained. There is no previous study for comparison. FINDINGS: There is generalized osteopenia. There is diffuse degenerative change throughout the tarsal joints and interphalangeal joints. There is joint space narrowing of the first MTP joint. There is bony erosion of the medial portion of the first metatarsal head distally, compatible with osteomyelitis. There is a faint area of lucency in the calcaneus, which is of uncertain age. IMPRESSION: Generalized osteopenia and diffuse degenerative changes. Erosive bony lesion involving the first metatarsal head medially, with overlying skin ulceration. The findings are compatible with osteomyelitis. There is an ill-defined area of lucency in the calcaneus, which is of indeterminate age. Dictated by: Dictated on workstation # [id number]
--- NOTE | 2021-12-04 15:30 | Diagnostic Imaging Report ---
CLINICAL INDICATIONS: Patient despite oral antibiotics x 2 weeks has not improved. EXAM: Portable chest x-ray upright view. COMPARISON: Portable chest x-ray dated 07/22/2009. FINDINGS: Lungs/pleura: There is minimal discoid atelectasis involving the left lung base. There is a subtle airspace opacity in the lateral right lung base which may represent atelectasis versus infiltrate. There is no pneumothorax. There is no pleural effusion. Mediastinum: Unremarkable. Pulmonary vasculature: Unremarkable. Heart: Unremarkable. Bones/extrathoracic soft tissue: Unremarkable. IMPRESSION: 1: There is interval development of a subtle airspace opacity in the periphery of the right lung base which may represent atelectasis versus infiltrate. 2: There is minimal discoid atelectasis in the left lung base. Dictated by: Dictated on workstation # [id number]
[2021-12-04 15:51] LABS: EOSINOPHILS % (MANUAL) 1 %; LYMPHOCYTES % (MANUAL) 5 %; MONOCYTES % (MANUAL) 5 %; NEUTROPHILS % (MANUAL) 89 %; RBC MORPH NORMAL
--- NOTE | 2021-12-04 16:39 | Consultation - Surgery ---
JUAN F SOLANO 12/04/21 1639: History of Present Illness History of Present Illness Patient Consulted On(rocco/time) 12/04/21 16:30 Date Seen by Provider: Dec 04, 2021 Time Seen by Provider: 16:31 Reason for Visit: Right foot ulcer History of Present Illness Ms. Sanabria is an 86 year old female with a past medical history of diabetes, arthritis, and breast cancer who presented to the [facility] ED via EMS for an ulcer on the medial aspect of her first metatarsal. She reports that 3 weeks ago, on November 12, that she hit her foot on an uneven floor and scraped off a callus. She says it has gotten progressively worse since she noticed it. She denies any pain associated with the lesion. She does report occasional shooting nerve pain from her diabetes. She went to her primary clinic on 16 November and received doxycycline but she says it has not helped and has only caused GI upset. She has washed her foot with rubbing alcohol and Clorox but says that has just dried her foot out. She says nothing makes it better or worse. She denies any associated symptoms such as fever, erythema, swelling, or pain. She is able to bear weight on her foot. She denies any radiation of pain. The wound is approximately 4cm by 3cm with deep ulceration and purulent fluid. The edges are erythematous. The skin around the lesion is flaky and dry. Partial debridement was done in the ED. Allergies and Home Medications Allergies Coded Allergies: ciprofloxacin (Verified Allergy, Mild, ANXIETY, 12/04/21) codeine (Verified Allergy, Mild, VOMITING, 12/04/21) Penicillins (Verified Allergy, Unknown, RASH, 12/04/21) STATES ITCHED AND "DROVE HER CRAZY" morphine (Verified Allergy, Unknown, N/V, 12/04/21) orange (Verified Adverse Reaction, Unknown, 12/04/21) Patient Home Medication List Colestipol Hcl (Colestipol Hcl) 1 Gm Tablet, 1 GM PO DAILY, (Reported) Entered as Reported by: RAMESH MACDONALD on 08/24/09 1700 Last Action: Reviewed Enalapril Maleate (Vasotec Po) 10 Mg Tab, 20 MG PO DAILY, (Reported) Entered as Reported by: GILBERT WALTERS on 07/05/09 1620 Last Action: Reviewed Insulin Human Regular (Novolin R Vial) 10 Unit/0.1 Ml Soln, 10 U SQ BID, (Reported) Entered as Reported by: GILBERT WALTERS on 07/05/09 1619 Last Action: Reviewed Insulin NPH Human Isophane (Novolin N) 100 Unit/1 Ml Vial, 10 UNIT SQ BID, (Reported) Entered as Reported by: ANALI WORTHY on 09/17/16 183 Last Action: Reviewed Lactobacillus Rhamnosus GG (Culturelle) 1 Each Capsule, 1 EACH PO DAILY, (Reported) Entered as Reported by: KELLY KELLEY on 12/04/21 183 Last Action: New Order Discontinued Medications Indapamide (Indapamide) 1.25 Mg Tablet, 1.25 MG PO DAILY PRN for SYSTOLIC BLOOD PRESSURE, (Reported) Discontinued Reason: No Longer Taking Entered as Reported by: RAMESH MACDONALD on 08/24/09 1700 Last Action: Discontinued Omeprazole (Omeprazole) 20 Mg Capsule.dr, 1 CAP PO DAILY, (Reported) Discontinued Reason: No Longer Taking Entered as Reported by: JASIEL PETERS on 10/02/11 0906 Last Action: Discontinued Past Sjvhray-Nyesxo-Nwyfje Hx Patient Social History Smoking Status: Never a Smoker Recent Hopitalizations: No Alcohol Use?: No Have you traveled recently?: No Immunizations Up To Date Date of Pneumonia Vaccine: Aug 29, 2012 Date of Influenza Vaccine: Aug 27, 2016 Seasonal Allergies Seasonal Allergies: No Surgeries Surgeries: Breast, Eye Surgery (Cataracts), Gallbladder, Hysterectomy, Oophorectomy (and salpingectomy) Respiratory History of Respiratory Disorde: No Cardiovascular Cardiac Disorders: Hypertension Neurological History of Neurological Disord: No Reproductive System Hx Reproductive Disorders: No Gastrointestinal History of Gastrointestinal Di: Yes Gastrointestinal Disorders: Gastroesophageal Reflux Musculoskeletal History of Musculoskeletal Dis: Yes Musculoskeletal Disorders: Arthritis Endocrine History of Endocrine Disorders: Yes Endocrine Disorders: Diabetes, Insulin dep (Insuln twice daily) HEENT History of HEENT Disorders: Yes HEENT Disorders: Cataract Cancer History of Cancer: Yes Cancer: Breast Family Medical History Significant Family History: Diabetes Review of Systems-General Constitutional: No chills, No fever; other (Generalized fatigue) EENTM: mouth pain (Mouth ulcerations); No eye pain Respiratory: No cough, No dyspnea on exertion, No short of breath Cardiovascular: No chest pain, No palpitations Gastrointestinal: No abdominal pain; diarrhea; No nausea, No vomiting; other ("Upset stomach" denies nausea or TTP) Musculoskeletal: No joint pain, No muscle pain Skin: dryness (RLE), lesions (RLE) Physical Exam-General Problems Physical Exam Vital Signs Vital Signs - First Documented 12/04/21 14:57 Temp 36.6 Pulse 104 Resp 18 B/P (MAP) 172/73 (106) Pulse Ox 100 Capillary Refill : Less Than 3 Seconds General Appearance: WD/WN, no apparent distress HEENT: PERRL/EOMI; No pale conjunctivae (R), No pale conjunctivae (L) Neck: non-tender, normal inspection; No lymphadenopathy (R), No lymphadenopathy (L) Respiratory: chest non-tender, lungs clear, normal breath sounds, no respiratory distress, no accessory muscle use Cardiovascular: regular rate, rhythm, systolic murmur (RUSB) Peripheral Pulses: 0 Dorsalis Pedis (R), 0 Left Dors-Pedis (L); 2+ Radial Pulses (R), 2+ Radial Pulses (L) Gastrointestinal: non tender, soft; No distended, No guarding Extremities: other (RLE ulceration on 1st metatarsal) Neurologic/Psychiatric: scrapper II-XII nml as tested, no motor/sensory deficits, alert, normal mood/affect, oriented x 3 Skin: other (RLE ulceration. Dry and flaky on RLE. Discoloration) Lymphatic: no adenopathy (Head and neck) Data Review Labs Laboratory Tests 12/04/21 14:52: White Blood Count 8.8, Red Blood Count 3.80, Hemoglobin 10.9L, Hematocrit 34L, Mean Corpuscular Volume 89, Mean Corpuscular Hemoglobin 29, Mean Corpuscular Hemoglobin Concent 32, Red Cell Distribution Width 13.4, Platelet Count 231, Mean Platelet Volume 11.8, Immature Granulocyte % (Auto) 0, Neutrophils (%) (Auto) 88H, Lymphocytes (%) (Auto) 5L, Monocytes (%) (Auto) 6, Eosinophils (%) (Auto) 0, Basophils (%) (Auto) 0, Neutrophils # (Auto) 7.8, Lymphocytes # (Auto) 0.5L, Monocytes # (Auto) 0.6, Eosinophils # (Auto) 0.0, Basophils # (Auto) 0.0, Immature Granulocyte # (Auto) 0.0, Neutrophils % (Manual) 89, Lymphocytes % (Ma nual) 5, Monocytes % (Manual) 5, Eosinophils % (Manual) 1, Blood Morphology Comment NORMAL, Prothrombin Time 14.3, INR Comment 1.1, Activated Partial Thromboplast Time 36H, Sodium Level 137, Potassium Level 4.0, Chloride Level 102, Carbon Dioxide Level 22, Anion Gap 13, Blood Urea Nitrogen 16, Creatinine 0.96, Estimat Glomerular Filtration Rate 58, BUN/Creatinine Ratio 17, Glucose Level 269H, Calcium Level 9.0, Corrected Calcium 9.5, Total Bilirubin 0.5, Aspartate Amino Transf (AST/SGOT) 14, Alanine Aminotransferase (ALT/SGPT) 9, Alkaline Phosphatase 90, Total Protein 6.9, Albumin 3.4 12/04/21 15:00: Lactic Acid Level 2.48*H Radiology Date of Exam:12/04/21 FOOT, RIGHT, 3 VIEW INDICATION: Osteomyelitis. AP, oblique, and lateral views of the right foot are obtained. There is no previous study for comparison. FINDINGS: There is generalized osteopenia. There is diffuse degenerative change throughout the tarsal joints and interphalangeal joints. There is joint space narrowing of the first MTP joint. There is bony erosion of the medial portion of the first metatarsal head distally, compatible with osteomyelitis. There is a faint area of lucency in the calcaneus, which is of uncertain age. IMPRESSION: Generalized osteopenia and diffuse degenerative changes. Erosive bony lesion involving the first metatarsal head medially, with overlying skin ulceration. The findings are compatible with osteomyelitis. There is an ill-defined area of lucency in the calcaneus, which is of indeterminate age. Dictated by: Dictated on workstation # [id number] Dict: 12/04/21 1525 Trans: 12/04/21 1609 [id number] Interpreted by: LAURA LOVE MD Electronically signed by: LAURA LOVE MD 12/04/21 1609 Assessment/Plan Assessment/Plan Assessment/Plan Assessment: Ulceration of right 1st metatarsal with osteomyelitis - Surgery tomorrow Diabetes - Insulin dependent Arthritis HTN h/o breast cancer Plan: Partial first ray amputation of RLE with wound-vac placement NPO after midnight Empiric antibiotics for osteomyelitis IV fluids Consult PT for rehab after surgery Social work consult for eventual home health needs MILDRED GERMAIN 12/04/212200: History of Present Illness History of Present Illness History of Present Illness 86 year old female with diabetes. Long standing callus to the right foot at great toe. November 12 struck foot on uneven floor and callus broke off. Has continued to worsen. No pain except her diabetic neuropathy pain. Has tried antibiotics. Has continued to worsen so was evaluated today and informed to go to ER by EMS. Patient notes balance issues due to foot. Patient no other complaints at this time. Denies n/v fever sweats chills shortness of breath or chest pain. Allergies and Home Medications Allergies Coded Allergies: ciprofloxacin (Verified Allergy, Mild, ANXIETY, 12/04/21) codeine (Verified Allergy, Mild, VOMITING, 12/04/21) Penicillins (Verified Allergy, Unknown, RASH, 12/04/21) STATES ITCHED AND "DROVE HER CRAZY" morphine (Verified Allergy, Unknown, N/V, 12/04/21) orange (Verified Adverse Reaction, Unknown, 12/04/21) Patient Home Medication List Home Medication List Reviewed: Yes Colestipol Hcl (Colestipol Hcl) 1 Gm Tablet, 1 GM PO DAILY, (Reported) Entered as Reported by: RAMESH MACDONALD on 08/24/09 1700 Last Action: Reviewed Enalapril Maleate (Vasotec Po) 10 Mg Tab, 20 MG PO DAILY, (Reported) Entered as Reported by: GILBERT WALTERS on 07/05/09 1620 Last Action: Reviewed Insulin Human Regular (Novolin R Vial) 10 Unit/0.1 Ml Soln, 10 U SQ BID, (Reported) Entered as Reported by: GILBERT WALTERS on 07/05/09 1619 Last Action: Reviewed Insulin NPH Human Isophane (Novolin N) 100 Unit/1 Ml Vial, 10 UNIT SQ BID, (Reported) Entered as Reported by: ANALI WORTHY on 09/17/161835 Last Action: Reviewed Lactobacillus Rhamnosus GG (Culturelle) 1 Each Capsule, 1 EACH PO DAILY, (Reported) Entered as Reported by: KELLY KELLEY on 12/04/211835 Last Action: New Order Discontinued Medications Indapamide (Indapamide) 1.25 Mg Tablet, 1.25 MG PO DAILY PRN for SYSTOLIC BLOOD PRESSURE, (Reported) Discontinued Reason: No Longer Taking Entered as Reported by: RAMESH MACDONALD on 08/24/09 1700 Last Action: Discontinued Omeprazole (Omeprazole) 20 Mg Capsule., 1 CAP PO DAILY, (Reported) Discontinued Reason: No Longer Taking Entered as Reported by: JASIEL PETERS on 10/02/11 0906 Last Action: Discontinued Past Vmcgcjv-Uvjael-Jtmlur Hx Reviewed Nursing Assessment Reviewed/Agree w Nursing PMH: Yes Family Medical History Significant Family History: No Pertinent Family Hx, Diabetes Review of Systems-General Constitutional: No chills, No fever EENTM: mouth pain (Mouth ulcerations); No eye pain Respiratory: No cough, No dyspnea on exertion, No short of breath Cardiovascular: No chest pain, No palpitations Gastrointestinal: No abdominal pain; diarrhea; No nausea, No vomiting; other ("Upset stomach" denies nausea or TTP) Musculoskeletal: No joint pain, No muscle pain Skin: dryness (RLE), lesions (RLE) Psychiatric/Neurological: Denies Anxiety, Denies Depressed, Denies Emotional P roblems All Other Systems Reviewed Negative Unless Noted: Yes (Negative excepted noted.) Physical Exam-General Problems Physical Exam General Appearance: WD/WN, no apparent distress HEENT: PERRL/EOMI, other (ulcers mouth) Neck: non-tender, supple Respiratory: chest non-tender, no respiratory distress, no accessory muscle use Cardiovascular: regular rate, rhythm, no JVD Gastrointestinal: non tender, soft; No distended, No guarding Rectal: deferred Back: no CVA tenderness, no vertebral tenderness Extremities: other (RLE ulceration on 1st metatarsal head region medial aspect of foot minial erythema around ulcer, some slough nontender) Neurologic/Psychiatric: alert, normal mood/affect, oriented x 3 Skin: warm/dry, other (RLE ulceration. Dry and flaky on RLE. Discoloration around ulceration, slough within wound) Lymphatic: no adenopathy (Head and neck) Assessment/Plan Assessment/Plan Assessment/Plan right foot 1st metatarsal osteomyelitis diabetic ulcer right foot diabetes insulin dependent patient discussed that will benefit most from operative management would recommend partial amputation of 1st ray right foot with wound vac placement patient discussed balance could be issue and would benefit from PT postoperatively to make safe for walking. Patient demonstrates understanding of what we discussed and wishes to proceed. To or tomorrow. NPO after midnight. Supervisory-Addendum Brief Verification & Attestation Participated in pt care: history, MDM, physical Personally performed: exam, history, MDM, supervision of care Care discussed with: Medical Student Procedures: n/a Results interpretation: Verified all documentation Verification and Attestation of Medical Student E/M Service A medical student performed and documented this service in my presence. I reviewed and verified all information documented by the medical student and made modifications to such information, when appropriate. I personally performed the physical exam and medical decision making. Mildred Germain, Dec 04, 2021,22:06 JUAN F SOLANO Dec 04, 2021 16:39 MILDRED GERMAIN DO Dec 04, 2021 22:01
--- NOTE | 2021-12-04 17:45 | Diagnostic Imaging Report ---
TECHNIQUE: Live grayscale and color Doppler ultrasound was performed of the right lower extremity arterial system. COMPARISON: None. REASON FOR EXAM: Right foot wound. Right lower extremity numbness. FINDINGS: Biphasic waveforms are seen in the right common femoral, profunda femoris and superficial femoral arteries. These arteries demonstrate normal peak systolic velocities without focal stenosis. Monophasic waveforms are seen in the right popliteal artery with somewhat elevated flow velocities of 222 cm/s. Monophasic waveforms are seen in the right anterior tibial, posterior tibial and dorsalis pedis arteries. 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 Elevated flow velocities are seen in the distal right posterior tibial artery measuring 196 cm/s. Moderate burden of atherosclerotic plaque is seen in the right lower extremity arterial system. IMPRESSION: 1. 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 2. Monophasic waveforms in the right popliteal artery and arteries of the right calf and foot. Elevated flow velocities are seen in the right popliteal artery and distal right posterior tibial artery. 3. Normal biphasic waveforms in the right common femoral, profunda femoris and superficial femoral arteries. Dictated by: Dictated on workstation # [id number]
[2021-12-04] MEDS ORDERED: ONDANSETRON 4 MG/2 ML (SDV) Z0FRAN IVP PRN (18:30)
[2021-12-04] MEDS ORDERED: LACT1CAP39 PO (18:36)
[2021-12-04] MEDS: LACTATED RINGERS 1,000 ML IV SCH (18:46)
[2021-12-04] MEDS ORDERED: VANCOMYCIN 1,750 MG/NS 500 ML IVPB IV NR ×2 (19:00)
[2021-12-04 19:15] VITALS: BP 207/101
[2021-12-04] MEDS ORDERED: amLODIPine 5 MG (NORVASC) TAB PO ONE (19:45)
[2021-12-04] MEDS: inSUlin ASPART (NovoLOG) 1 UNIT/0.01 ML (CHARGE PER UNIT) SC SCH (20:27)
[2021-12-04] MEDS ORDERED: CEFEPIME 1,000 MG/NS 50 ML IVPB IV SCH ×2 (21:00)
[2021-12-04] MEDS: ENALAPRIL 10 MG (VASOTEC) TAB PO SCH (21:35)
[2021-12-04 23:01] VITALS: BP 160/63
[2021-12-05] VITALS (11 sets, daily range): BP systolic 118–167; BP diastolic 60–95
[2021-12-05] MEDS: LACTATED RINGERS 1,000 ML IV SCH ×3 (06:04→21:26)
--- NOTE | 2021-12-05 06:50 | Progress Note - Surgery ---
JUAN F SOLANO 12/05/21 0650: Subjective Date Seen by a Provider: Dec 05, 2021 Time Seen by a Provider: 06:49 Subjective/Events-last exam Ms. Sanabria is scheduled for partial first ray amputation of RLE with wound-vac placement this morning. She says she is ready to do what it takes to get better. She denies any pain, fever, chills, or vomiting this morning. Her right foot is bandaged this morning. She says she still has GI upset from her course of antibiotics along with mouth pain. She says she did not get much sleep last night but she does not normally sleep much. Review of Systems General: No Chills, No Fatigue HEENT: No Head Aches, No Visual Changes Pulmonary: No Dyspnea, No Cough Cardiovascular: No: Chest Pain, Palpitations Gastrointestinal: Nausea; No: Vomiting, Abdominal Pain Genitourinary: No Dysuria, No Frequency Neurological: Numbness; No: Weakness Focused Exam Lactate Level 12/04/21 15:00: Lactic Acid Level 2.48*H 12/04/21 16:33: Lactic Acid Level 1.32 Objective Exam Vital Signs Date Time Temp Pulse Resp B/P (MAP) Pulse Ox O2 Delivery O2 Flow Rate FiO2 12/05/21 04:09 36.7 75 18 146/69 (94) 97 Room Air 12/04/21 23:01 37.0 73 20 160/63 (95) 96 Room Air 12/04/21 19:55 96 Room Air 12/04/21 19:15 36.8 86 20 207/101 (136) 98 Room Air 12/04/21 17:50 95 18 160/65 97 12/04/21 14:57 36.6 104 18 172/73 (106) 100 I & O 12/05/21 07:00 Intake Total 345 ml Output Total 2800 ml Balance -2455 ml Capillary Refill : Less Than 3 Seconds General Appearance: No Apparent Distress, WD/WN HEENT: Moist Mucous Membranes; No Pale Conjunctivae (L), No Pale Conjunctivae ( R) Neck: Normal Inspection, Non Tender; No Lymphadenopathy (L), No Lymphadenopathy (R) Respiratory: Chest Non Tender, Lungs Clear, Normal Breath Sounds, No Accessory Muscle Use, No Respiratory Distress Cardiovascular: Regular Rate, Rhythm, Normal Peripheral Pulses, Systolic Murmur Peripheral Pulses: 0 Dorsalis Pedis (R), 0 Left Dors-Pedis (L); 2+ Radial Pulses (R), 2+ Radial Pulses (L) Gastrointestinal: non tender, soft; No distended, No guarding Extremity: Normal Capillary Refill, No Calf Tenderness, Other (Ulceration and osteo of right 1st metatarsal, medial aspect. Bandaged this morning.) Neurologic/Psychiatric: Alert, Oriented x3, Normal Mood/Affect, slicing machine tender II-XII Norm as Tested, Sensory Deficit Skin: Normal Color, Other (Ulceration and osteo of right 1st metatarsal, medial aspect. Bandaged this morning.) Lymphatic: No Adenopathy (Head and neck) Results Lab Laboratory Tests 12/04/21 14:52: White Blood Count 8.8, Red Blood Count 3.80, Hemoglobin 10.9L, Hematocrit 34L, Mean Corpuscular Volume 89, Mean Corpuscular Hemoglobin 29, Mean Corpuscular Hemoglobin Concent 32, Red Cell Distribution Width 13.4, Platelet Count 231, Mean Platelet Volume 11.8, Immature Granulocyte % (Auto) 0, Neutrophils (%) (Auto) 88H, Lymphocytes (%) (Auto) 5L, Monocytes (%) (Auto) 6, Eosinophils (%) (Auto) 0, Basophils (%) (Auto) 0, Neutrophils # (Auto) 7.8, Lymphocytes # (Auto) 0.5L, Monocytes # (Auto) 0.6, Eosinophils # (Auto) 0.0, Basophils # (Auto) 0.0, Immature Granulocyte # (Auto) 0.0, Neutrophils % (Manual) 89, Lymphocytes % (Manual) 5, Monocytes % (Manual) 5, Eosinophils % (Manual) 1, Blood Morphology Comment NORMAL, Prothrombin Time 14.3, INR Comment 1.1, Activated Partial Thromboplast Time 36H, Sodium Level 137, Potassium Level 4.0, Chloride Level 102, Carbon Dioxide Level 22, Anion Gap 13, Blood Urea Nitrogen 16, Creatinine 0.96, Estimat Glomerular Filtration Rate 58, BUN/Creatinine Ratio 17, Glucose Level 269H, Calcium Level 9.0, Corrected Calcium 9.5, Total Bilirubin 0.5, Aspartate Amino Transf (AST/SGOT) 14, Alanine Aminotransferase (ALT/SGPT) 9, Alkaline Phosphatase 90, Total Protein 6.9, Albumin 3.4 12/04/21 15:00: Lactic Acid Level 2.48*H 12/04/21 16:33: Lactic Acid Level 1.32 Assessment/Plan Assessment/Plan Assessment/Plan Assessment: Ulceration of right 1st metatarsal with osteomyelitis - Surgery today Diabetes - Insulin dependent Arthritis HTN h/o breast cancer Plan: Partial first ray amputation of RLE with wound-vac placement today Patient has been NPO since midnight Continue antibiotics for osteomyelitis IV fluids Consult PT for rehab after surgery Social work consult for eventual home health needs MILDRED SALINAS DO 12/05/21 0901: Subjective Subjective/Events-last exam Patient with no right foot pain. No changes over night. Denies n/v fever sweats chills shortness of breath. NPO. Planning surgery this am. Objective Exam General Appearance: No Apparent Distress, WD/WN HEENT: PERRL/EOMI, Normal ENT Inspection Neck: Normal Inspection, Non Tender Respiratory: Chest Non Tender, No Accessory Muscle Use, No Respiratory Distress Cardiovascular: Regular Rate, Rhythm, No JVD Gastrointestinal: non tender, soft; No distended, No guarding Extremity: Non Tender, No Calf Tenderness, Other (right foot bandage intact) Neurologic/Psychiatric: Alert, Oriented x3, Normal Mood/Affect Skin: Normal Color Lymphatic: No Adenopathy (Head and neck) Assessment/Plan Assessment/Plan Assessment/Plan right foot 1st metatarsal osteomyelitis diabetic ulcer right foot diabetes insulin dependent plan for partial 1st ray amptuation right foot with wound vac placement all other indicated procedures. NPO Supervisory-Addendum Brief Verification & Attestation Participated in pt care: history, MDM, physical Personally performed: exam, history, MDM, supervision of care Care discussed with: Medical Student Procedures: n/a Results interpretation: Verified all documentation Verification and Attestation of Medical Student E/M Service A medical student performed and documented this service in my presence. I reviewed and verified all information documented by the medical student and made modifications to such information, when appropriate. I personally performed the physical exam and medical decision making. Mildred Salinas, Dec 05, 2021,07:29 JUAN F SOLANO Dec 05, 2021 06:50 MILDRED SALINAS DO Dec 05, 2021 09:01
[2021-12-05] MEDS ORDERED: LIDOCAINE 1% INJ 20 ML VIAL ONE (07:45)
[2021-12-05] MEDS ORDERED: LACTATED RINGERS 1,000 ML IV PRN (07:45)
[2021-12-05] MEDS ORDERED: BUPIVACAINE 0.25% 30 ML (SENSORCAINE) VIAL ONE (07:46)
[2021-12-05] MEDS: inSUlin ASPART (NovoLOG) 1 UNIT/0.01 ML (CHARGE PER UNIT) SC SCH ×4 (07:58→20:23)
--- NOTE | 2021-12-05 09:13 | Progress Note-Post Operative ---
Post-Operative Progess Note Surgeon (s)/Voltage Tester (s) Surgeon MILDRED GERMAIN DO Voltage Tester: na Pre-Operative Diagnosis right foot 1st metatarsal osteomyelitis with dm foot ulcer Post-Operative Diagnosis same Procedure & Operative Findings Date of Procedure 12/05/21 Procedure Performed/Findings partial 1st ray amptuation right foot, right foot block, and wound vac placement 6x4.5x2cm Anesthesia Type mac c right foot block Estimated Blood Loss Estimated blood loss (mL): minimal Specimens/Packing Specimens Removed right great toe and partial metatarsal bone MILDRED GERMAIN DO Dec 05, 2021 09:13
--- NOTE | 2021-12-05 09:51 | Anesthesia-General Post-Op ---
MAC Patient Condition Mental Status/LOC: Same as Preop Cardiovascular: Satisfactory Nausea/Vomiting: Absent Respiratory: Satisfactory Pain: Controlled Complications: Absent Post Op Complications Complications None Follow Up Care/Instructions Patient Instructions None needed. Anesthesiology Discharge Order Discharge Order Patient is doing well, no complaints, stable vital signs, no apparent adverse anesthesia problems. No complications reported per nursing. JAY VALERIO CRNA Dec 05, 2021 09:51
[2021-12-05] MEDS: CEFEPIME 1,000 MG/NS 50 ML IVPB IV SCH ×6 (10:05→21:27)
[2021-12-05] MEDS: ENALAPRIL 10 MG (VASOTEC) TAB PO SCH ×2 (10:06→21:26)
--- NOTE | 2021-12-05 12:58 | History & Physical ---
History of Present Illness History of Present Illness Reason for visit/HPI This is a 86 [address] Pedraza's who states that she was standing on the edge of a stool around November 12 and that a callus from her foot came off from the pressure. She has apparently had an open wound there ever since. She was seen by home health and sent to the emergency room where she was found to have a foot ulcer with osteomyelitis over her first metatarsal on the right. She will be admitted with surgery consult for right first metatarsal amputation. She has a history of hypertension and insulin requiring diabetes. Date of Admission Dec 04, 2021 at 16:25 Date Seen by a Provider: Dec 05, 2021 Time Seen by a Provider: 12:53 I consulted on this patient on 12/05/21 12:53 Attending Physician Gerald Valenzuela DO Admitting Physician Ivory Pedraza MD Consult Allergies and Home Medications Allergies Coded Allergies: ciprofloxacin (Verified Allergy, Mild, ANXIETY, 12/04/21) codeine (Verified Allergy, Mild, VOMITING, 12/04/21) Penicillins (Verified Allergy, Unknown, RASH, 12/04/21) STATES ITCHED AND "DROVE HER CRAZY" morphine (Verified Allergy, Unknown, N/V, 12/04/21) orange (Verified Adverse Reaction, Unknown, 12/04/21) Patient Home Medication List Home Medication List Reviewed: Yes Colestipol Hcl (Colestipol Hcl) 1 Gm Tablet, 1 GM PO DAILY, (Reported) Entered as Reported by: RAMESH MACDONALD on 08/24/09 1700 Last Action: Reviewed Enalapril Maleate (Vasotec Po) 10 Mg Tab, 20 MG PO DAILY, (Reported) Entered as Reported by: GILBERT WALTERS on 07/05/09 162 Last Action: Reviewed Insulin Human Regular (Novolin R Vial) 10 Unit/0.1 Ml Soln, 10 U SQ BID, (Reported) Entered as Reported by: GILBERT WALTERS on 07/05/09 1619 Last Action: Reviewed Insulin NPH Human Isophane (Novolin N) 100 Unit/1 Ml Vial, 10 UNIT SQ BID, (Reported) Entered as Reported by: ANALI WORTHY on 09/17/16 1836 Last Action: Reviewed Lactobacillus Rhamnosus GG (Culturelle) 1 Each Capsule, 1 EACH PO DAILY, (Reported) Entered as Reported by: KELLY KELLEY on 12/04/21 1836 Last Action: New Order Discontinued Medications Indapamide (Indapamide) 1.25 Mg Tablet, 1.25 MG PO DAILY PRN for SYSTOLIC BLOOD PRESSURE, (Reported) Discontinued Reason: No Longer Taking Entered as Reported by: RAMESH MACDONALD on 08/24/09 1700 Last Action: Discontinued Omeprazole (Omeprazole) 20 Mg Capsule.dr, 1 CAP PO DAILY, (Reported) Discontinued Reason: No Longer Taking Entered as Reported by: JASIEL PETERS on 10/02/11 0906 Last Action: Discontinued Past Gbruwrd-Ftncft-Rsmruk Hx Patient Social History Tobacco Use?: No Smoking Status: Never a Smoker Substance use?: No Alcohol Use?: No Pt feels they are or have been: No Immunizations Up To Date Date of Influenza Vaccine: Sep 04, 2021 First/Initial COVID19 Vaccinat: Dec 2020 Second COVID19 Vaccination Srini: Jan 2021 Date of Pneumonia Vaccine: Aug 29, 2012 Seasonal Allergies Seasonal Allergies: No Current Status status: No Advance Directives: Yes Advance Directive Location: Copy from prev record Communicates: Verbally Primary Language: Libyan Preferred Spoken Language: Libyan Is interpretation needed?: No Sensory deficits: Vision impairment Implanted or Applied Medical D: Orthopedic hardware Past Medical History Surgeries: Breast, Eye Surgery (Cataracts), Gallbladder, Hysterectomy, Oophorectomy (and salpingectomy) Currently Using CPAP: No Currently Using BIPAP: No Hypertension Gastroesophageal Reflux Arthritis Diabetes, Insulin dep (Insuln twice daily) Cataract Breast Family Medical History No Pertinent Family Hx, Diabetes Review of Systems Constitutional: weakness EENTM: No see HPI, No no symptoms reported, No ear discharge, No hearing loss, No ear pain, No blurred vision, No double vision, No eye pain, No tearing, No vision loss, No dental problems, No hoarseness, No mouth pain, No mouth swelling, No epistaxis, No nose congestion, No nose pain, No throat pain, No throat swelling, No other Respiratory: No no symptoms reported, No see HPI, No cough, No dyspnea on exertion, No hemoptysis, No orthopnea, No phlegm, No short of breath, No stridor, No wheezing, No other Cardiovascular: No no symptoms reported, No see HPI, No chest pain, No edema, No Hx of Intervention, No palpitations, No syncope, No vascular heart diseas, No other Gastrointestinal: No RUQ, No LUQ, No RLQ, No LLQ, No no symptoms reported, No see HPI, No abdominal pain, No constipation, No diarrhea, No dysphagia, No hematemesis, No heartburn, No jaundice, No loss of appetite, No melena, No nausea, No vomiting, No other Genitourinary: No no symptoms reported, No see HPI, No decreased output, No discharge, No dysuria, No frequency, No hematuria, No hesitancy, No incontinence, No nocturia, No pain, No other Musculoskeletal: joint pain Skin: other (right first toe ulcer) Psychiatric/Neurological: Weakness Physical Exam Vital Signs Vital Signs - First Documented 12/04/21 12/04/21 14:57 19:15 Temp 36.6 Pulse 104 Resp 18 B/P (MAP) 172/73 (106) Pulse Ox 100 O2 Delivery Room Air Capillary Refill : Less Than 3 SecondsLess Than 3 Seconds Height, Weight, BMI Height: 6'" Weight: 240lbs. oz. [id number]; 28.74 BMI Method:Stated General Appearance: No Apparent Distress HEENT: Normal ENT Inspection Neck: Supple Respiratory: Lungs Clear Cardiovascular: Regular Rate, Rhythm Gastrointestinal: Normal Bowel Sounds, Non Tender, Soft Rectal: Deferred Back: No CVA Tenderness Extremity: Non Tender, No Calf Tenderness, No Pedal Edema Neurologic/Psychiatric: Alert, Oriented x3 Skin: Other (right foot with amputation of great toe with wound vac in place) Comments Laboratory Tests 12/04/21 14:52: White Blood Count 8.8, Red Blood Count 3.80, Hemoglobin 10.9L, Hematocrit 34L, Mean Corpuscular Volume 89, Mean Corpuscular Hemoglobin 29, Mean Corpuscular Hemoglobin Concent 32, Red Cell Distribution Width 13.4, Platelet Count 231, Mean Platelet Volume 11.8, Immature Granulocyte % (Auto) 0, Neutrophils (%) (Auto) 88H, Lymphocytes (%) (Auto) 5L, Monocytes (%) (Auto) 6, Eosinophils (%) (Auto) 0, Basophils (%) (Auto) 0, Neutrophils # (Auto) 7.8, Lymphocytes # (Auto) 0.5L, Monocytes # (Auto) 0.6, Eosinophils # (Auto) 0.0, Basophils # (Auto) 0.0, Immature Granulocyte # (Auto) 0.0, Neutrophils % (Manual) 89, Lymphocytes % (Manual) 5, Monocytes % (Manual) 5, Eosinophils % (Manual) 1, Blood Morphology Comment NORMAL, Prothrombin Time 14.3, INR Comment 1.1, Activated Partial Thromboplast Time 36H, Sodium Level 137, Potassium Level 4.0, Chloride Level 102, Carbon Dioxide Level 22, Anion Gap 13, Blood Urea Nitrogen 16, Creatinine 0.96, Estimat Glomerular Filtration Rate 58, BUN/Creatinine Ratio 17, Glucose Level 269H, Calcium Level 9.0, Corrected Calcium 9.5, Total Bilirubin 0.5, Aspartate Amino Transf (AST/SGOT) 14, Alanine Aminotransferase (ALT/SGPT) 9, Alkaline Phosphatase 90, Total Protein 6.9, Albumin 3.4 12/04/21 15:00: Lactic Acid Level 2.48*H 12/04/21 16:33: Lactic Acid Level 1.32 12/05/21 00:00: Coronavirus (COVID-19)(PCR) [Pending], Influenza Type A (RT-PCR) [Pending], Influenza Type A Antigen NEGATIVE, Influenza Type B Antigen NEGATIVE, Influenza Type B (RT-PCR) [Pending] 12/05/21 07:25: Glucometer 140H 12/05/21 11:29: Glucometer 168H Assessment/Plan Assessment and Plan 1. Right First Metatarsal Osteomyelitis/Diabetic Foot Ulcer--S/P right first metatarsal amputation with wound vac placement, on Cefepime and Vancomycin, will start lovenox tomorrow since just had surgery this morning 2. Hypertension--Vasotec dose increased, will add amlodopine 3. DM--insulin requiring--start accuchecks with SSI 4. Chronic Diarrhea--start lactobacillus Admission Diagnosis Admission Status: Inpatient Order (span 2 midnights) Reason for Inpatient Admission: Will need IV abx until culture results back and DC plans GERALD VALENZUELA DO Dec 05, 2021 12:58
[2021-12-05] MEDS ORDERED: amLODIPine 5 MG (NORVASC) TAB PO NR (13:00)
[2021-12-05] MEDS: ACETAMINOPHEN 325 MG TABLET PO PRN ×2 (14:42→21:33)
[2021-12-05] MEDS: LACTOBACILLUS Acidoph/Bulgar 1 GM (LACTINEX) PACKET PO SCH ×2 (16:02→21:27)
[2021-12-05] MEDS: VANCOMYCIN 1500 MG/NS 500 ML IVPB IV SCH ×2 (18:27)
--- NOTE | 2021-12-05 20:43 | OPERATIVE REPORT ---
DATE OF SERVICE: 12/05/2021 PREOPERATIVE DIAGNOSES: Osteomyelitis, first metatarsal head and diabetic foot ulcer. POSTOPERATIVE DIAGNOSES: Osteomyelitis, first metatarsal head and diabetic foot ulcer. SURGEON: Mildred Salinas DO ANESTHESIA: MAC with local. PROCEDURE: Partial right first ray amputation, right foot block and wound VAC placement, 6 x 4.5 x 2 cm. INDICATIONS: The patient is an 86-year-old female, who has a wound to her right foot also apparent of osteomyelitis of the right metatarsal head. This was continued to worsen. The patient was discussed options. She wished to proceed with procedure. She understands all risks and benefits. She understands the long-term course of management. DESCRIPTION OF PROCEDURE: The patient was taken to the operating suite. She was prepped and draped in sterile fashion. Surgical pause was performed. Cautery cut was used to excise the surrounding tissue around the ulceration. The great toe was incorporated into this. There were some slough within the wound, which then was also continued to be dissected out using cautery. The metatarsal head was from the great toe already some of the great toe was removed. The distal portion of the metatarsal head was soft and breaking apart. The mid bone to proximal bone of the metatarsal head was intact and no evidence of osteomyelitis at this area. Using a saw, the bone was divided. This was also had cut an angle for walking on this area to be better with pressure. The bone edge was then filed to a smooth angle. The wound was then irrigated with copious amounts of irrigation. Hemostasis was achieved. Wound VAC was then placed and the wound was 6 x 4.5 x 2 cm. The bone was covered with nonadhesive and a black foam was then inserted and secured in the usual fashion. The wound was bridged to the top of the foot where the wound VAC was attached. The patient tolerated procedure well. Prior to beginning the case, a right foot block was performed. Local anesthetic was infiltrated on the medial and lateral aspects to just posteriorly to the tibia and fibula distally. Local anesthetic was then infiltrated above the top of the foot with distribution. The patient tolerated procedure well. She was taken to the recovery room in stable condition. Job ID: [id number] DocumentID: [id number] Dictated Date: 12/05/2021 15:49:27 Special Systems Technician Date: 12/05/2021 20:42:54 Dictated By: MILDRED SALINAS DO
[2021-12-06] VITALS: BP 177/72
[2021-12-06] MEDS: CEFEPIME 1,000 MG/NS 50 ML IVPB IV SCH ×8 (03:34→20:31)
[2021-12-06 04:00] VITALS: BP 149/65
[2021-12-06 06:49] LABS: HEMATOCRIT 33 % (35-52); HEMOGLOBIN 10.4 g/dL (11.5-16.0); MEAN CORPUSCULAR HEMOGLOBIN 28 pg (25-34); MEAN CORPUSCULAR HGB CONC 32 g/dL (32-36); MEAN CORPUSCULAR VOLUME 88 fL (80-99); MEAN PLATELET VOLUME 11.7 fL (9.0-12.2); PLATELET COUNT 211 10^3/uL (130-400); WHITE BLOOD COUNT 5.7 10^3/uL (4.3-11.0)
[2021-12-06 07:14] VITALS: BP 144/64
[2021-12-06] MEDS: inSUlin ASPART (NovoLOG) 1 UNIT/0.01 ML (CHARGE PER UNIT) SC SCH ×4 (07:35→21:19)
[2021-12-06] MEDS: LACTOBACILLUS Acidoph/Bulgar 1 GM (LACTINEX) PACKET PO SCH ×4 (07:35→20:31)
[2021-12-06 07:48] LABS: CALCIUM 8.6 MG/DL (8.5-10.1); CREATININE SERUM 0.69 MG/DL (0.60-1.30); POTASSIUM 3.9 MMOL/L (3.6-5.0)
[2021-12-06] MEDS: ENALAPRIL 10 MG (VASOTEC) TAB PO SCH ×2 (07:53→20:32)
[2021-12-06] MEDS: amLODIPine 5 MG (NORVASC) TAB PO SCH (07:53)
[2021-12-06] MEDS: LACTATED RINGERS 1,000 ML IV SCH ×2 (07:57→21:19)
--- NOTE | 2021-12-06 08:59 | Progress Note - Surgery ---
JUAN F SOLANO 12/06/21 0859: Subjective Date Seen by a Provider: Dec 06, 2021 Time Seen by a Provider: 08:54 Subjective/Events-last exam Ms. Sanabria is 1 day s/p partial ray amputation of the 1st metatarsal with wound-vac placement. This morning she reports no pain at all and says that she is feeling very good. She denies any complications or issues after surgery yesterday and said that her night went well. She is tolerating a normal diet well. Her wound-vac is placed. She was given ICS but has not used it yesterday, she says she will start using it today. She is eager to start PT and begin walking as soon as she can. Review of Systems General: No Chills; Fatigue HEENT: No Visual Changes; Other (Mouth pain) Pulmonary: No Dyspnea, No Cough Cardiovascular: No: Chest Pain, Palpitations Gastrointestinal: Nausea (After antibiotics); No: Vomiting, Abdominal Pain Genitourinary: No Dysuria; Other (Urinary cath) Musculoskeletal: No: leg pain, foot pain Neurological: No: Weakness, Confusion Focused Exam Lactate Level 12/04/21 15:00: Lactic Acid Level 2.48*H 12/04/21 16:33: Lactic Acid Level 1.32 Objective Exam Vital Signs Date Time Temp Pulse Resp B/P (MAP) Pulse Ox O2 Delivery O2 Flow Rate FiO2 12/06/21 08:01 Room Air 12/06/21 07:14 36.3 77 18 144/64 (90) 93 Room Air 12/06/21 04:00 36.9 79 16 149/65 (93) 92 Room Air 12/06/21 00:00 36.1 68 16 177/72 (107) 97 Room Air 12/05/21 22:03 36.6 12/05/21 21:20 96 Room Air 12/05/21 20:00 36.6 77 16 123/60 (81) 97 Room Air 12/05/21 16:00 36.6 80 18 148/65 (92) 97 Room Air 12/05/21 12:00 36.6 77 16 132/65 (87) 97 Room Air 12/05/21 10:15 36.8 85 20 153/67 (95) 97 Room Air 12/05/21 09:40 Room Air 12/05/21 09:40 36.5 18 158/66 (96) 96 Room Air 12/05/21 09:30 23 118/95 (103) 98 Room Air 12/05/21 09:25 OxyMask 1 12/05/21 09:20 21 143/67 (92) 100 OxyMask 2 12/05/21 09:10 17 164/81 (108) 100 2 12/05/21 09:10 OxyMask 2 12/05/21 09:00 21 165/67 (99) 100 OxyMask 3 I & O 12/06/21 07:00 Intake Total 2675 ml Output Total 3950 ml Balance -1275 ml Capillary Refill : Less Than 3 SecondsLess Than 3 Seconds General Appearance: No Apparent Distress, WD/WN HEENT: PERRL/EOMI; No Scleral Icterus (L), No Scleral Icterus (R) Neck: Normal Inspection, Non Tender; No Lymphadenopathy (L), No Lymphadenopathy (R) Respiratory: Chest Non Tender, Lungs Clear, Normal Breath Sounds, No Accessory Muscle Use, No Respiratory Distress Cardiovascular: Regular Rate, Rhythm, Normal Peripheral Pulses, Systolic Murmur Peripheral Pulses: 0 Dorsalis Pedis (R), 0 Left Dors-Pedis (L); 2+ Radial Pulses (R), 2+ Radial Pulses (L) Gastrointestinal: non tender, soft; No distended, No guarding Extremity: Non Tender, No Calf Tenderness, No Pedal Edema Neurologic/Psychiatric: Alert, Oriented x3, No Motor/Sensory Deficits, Normal Mood/Affect, harness and bag inspector II-XII Norm as Tested Skin: Normal Color, Other (right foot with amputation of great toe with wound vac in place) Lymphatic: No Adenopathy (Head and neck) Results Lab Laboratory Tests 12/05/21 11:29: Glucometer 168H 12/05/21 16:35: Glucometer 241H 12/05/21 20:12: Glucometer 114H 12/06/21 06:18: White Blood Count 5.7, Red Blood Count 3.70L, Hemoglobin 10.4L, Hematocrit 33L, Mean Corpuscular Volume 88, Mean Corpuscular Hemoglobin 28, Mean Corpuscular Hemoglobin Concent 32, Red Cell Distribution Width 13.4, Platelet Count 211, Mean Platelet Volume 11.7, Sodium Level 140, Potassium Level 3.9, Chloride Level 106, Carbon Dioxide Level 23, Anion Gap 11, Blood Urea Nitrogen 11, Creatinine 0.69, Estimat Glomerular Filtration Rate 85, BUN/Creatinine Ratio 16, Glucose Level 160H, Calcium Level 8.6 12/06/21 07:20: Glucometer 155H Microbiology 12/04/21 Blood Culture - Preliminary, Resulted No growth Assessment/Plan Assessment/Plan Assessment/Plan Assessment: Ulceration of right 1st metatarsal with osteomyelitis - Partial first ray amputation of RLE with wound-vac placement yesterday Diabetes - Insulin dependent Arthritis HTN h/o breast cancer Plan: Continue cefepime and vancomycin for osteomyelitis IV fluids Encourage ICS and ambulation with PT PT consult Social work consult for eventual home health needs LUDWIN CONROY DO 12/06/21 1326: Subjective Time Seen by a Provider: 11:29 Subjective/Events-last exam Pt seen and examined, no new complaints and denies pain. Asking about walking. Review of Systems General: No Chills; Fatigue Pulmonary: No Dyspnea, No Cough Cardiovascular: No: Chest Pain, Palpitations Gastrointestinal: Nausea (After antibiotics); No: Vomiting, Abdominal Pain Objective Exam General Appearance: No Apparent Distress, WD/WN HEENT: Scleral Icterus (R) Respiratory: Chest Non Tender, Lungs Clear, Normal Breath Sounds, No Accessory Muscle Use Cardiovascular: Regular Rate, Rhythm, Systolic Murmur Extremity: No Calf Tenderness, No Pedal Edema, Other (right foot with amputation of great toe with wound vac in place) Neurologic/Psychiatric: Alert, Oriented x3 Assessment/Plan Assessment/Plan Assessment/Plan S/P Partial first ray amputation of RLE with wound-vac placement yesterday for Osteomyelitis Diabetes - Insulin dependent Arthritis HTN Plan: Continue cefepime and vancomycin for osteomyelitis IV fluids Encourage ICS and ambulation; will get PT consult and walker (she uses one at home) Social work consult for eventual home health needs Supervisory-Addendum Brief Verification & Attestation Participated in pt care: history, MDM, physical Personally performed: exam, history, MDM, supervision of care Care discussed with: Medical Student Procedures: n/a Verification and Attestation of Medical Student E/M Service A medical student performed and documented this service. I then reviewed and verified all information documented by the medical student and made modifications to such information, when appropriate. I personally performed a physical exam, medical decision making and then discussed any differences b etween the notes and made revisions as necessary to create one note. Ludwin Conroy , 12/06/21 , 13:26 JUAN F SOLANO Dec 06, 2021 08:59 LUDWIN CONROY DO Dec 06, 2021 13:26
--- NOTE | 2021-12-06 10:47 | Progress Note ---
Subjective Date Seen by a Provider: Dec 06, 2021 Time Seen by a Provider: 10:43 Subjective/Events-last exam Fwup right first metatarsal osteomyelitis/diabetic foot ulcer--S/P amputation with wound vac in place, Hypertension, Chronic Diarrhea. Denies pain. Worried about how she will be able to take care of herself on discharge. Focused Exam Lactate Level 12/04/21 15:00: Lactic Acid Level 2.48*H 12/04/21 16:33: Lactic Acid Level 1.32 Objective Exam Vital Signs Date Time Temp Pulse Resp B/P (MAP) Pulse Ox O2 Delivery O2 Flow Rate FiO2 12/06/21 08:01 Room Air 12/06/21 07:14 36.3 77 18 144/64 (90) 93 Room Air 12/06/21 04:00 36.9 79 16 149/65 (93) 92 Room Air 12/06/21 00:00 36.1 68 16 177/72 (107) 97 Room Air 12/05/21 22:03 36.6 12/05/21 21:20 96 Room Air 12/05/21 20:00 36.6 77 16 123/60 (81) 97 Room Air 12/05/21 16:00 36.6 80 18 148/65 (92) 97 Room Air 12/05/21 12:00 36.6 77 16 132/65 (87) 97 Room Air I & O 12/06/21 07:00 Intake Total 2675 ml Output Total 3950 ml Balance -1275 ml Capillary Refill : Less Than 3 SecondsLess Than 3 Seconds General Appearance: No Apparent Distress Neck: Supple Respiratory: Lungs Clear Cardiovascular: Regular Rate, Rhythm, Gallop/S4 Gastrointestinal: normal bowel sounds, non tender, soft Extremity: Non Tender, No Calf Tenderness, No Pedal Edema Neurologic/Psychiatric: Alert, Oriented x3 Results Lab Laboratory Tests 12/05/21 11:29: Glucometer 168H 12/05/21 16:35: Glucometer 241H 12/05/21 20:12: Glucometer 114H 12/06/21 06:18: White Blood Count 5.7, Red Blood Count 3.70L, Hemoglobin 10.4L, Hematocrit 33L, Mean Corpuscular Volume 88, Mean Corpuscular Hemoglobin 28, Mean Corpuscular Hemoglobin Concent 32, Red Cell Distribution Width 13.4, Platelet Count 211, Mean Platelet Volume 11.7, Sodium Level 140, Potassium Level 3.9, Chloride Level 106, Carbon Dioxide Level 23, Anion Gap 11, Blood Urea Nitrogen 11, Creatinine 0.69, Estimat Glomerular Filtration Rate 85, BUN/Creatinine Ratio 16, Glucose Level 160H, Calcium Level 8.6 12/06/21 07:20: Glucometer 155H Microbiology 12/04/21 Blood Culture - Preliminary, Resulted No growth Assessment/Plan Assessment/Plan Assess & Plan/Chief Complaint 1. Right First Metatarsal Osteomyelitis/Diabetic Foot Ulcer--S/P right first metatarsal amputation with wound vac placement, on Cefepime and Vancomycin, will start lovenox, consult tomorrow to look into DC plan--I did talk to patient about senior care facility 2. Hypertension--on Vasotec and amlodopine 3. DM--insulin requiring--on accuchecks with SSI 4. Chronic Diarrhea--started lactobacillus Clinical Quality Measures Admission Status Admission Dx 1. Right First Metatarsal Osteomyelitis/Diabetic Foot Ulcer--S/P right first metatarsal amputation with wound vac placement, on Cefepime and Vancomycin, will start lovenox tomorrow since just had surgery this morning 2. Hypertension--Vasotec dose increased, will add amlodopine 3. DM--insulin requiring--start accuchecks with SSI 4. Chronic Diarrhea--start lactobacillus GERALD PATTON DO Dec 06, 2021 10:47
[2021-12-06] MEDS ORDERED: DOCUSATE SODIUM 100 MG (COLACE) CAP PO NR (11:00)
[2021-12-06] MEDS: ENOXAPARIN 40 MG/0.4 ML (LOVENOX) SYR SC SCH (11:13)
[2021-12-06 11:32] VITALS: BP 122/61
[2021-12-06 16:00] VITALS: BP 153/71
[2021-12-06] MEDS ORDERED: TROUGH ORDER-PHARMACY XX NR (18:00)
[2021-12-06] MEDS ORDERED: NS IV 500 ML 500 ML ONE (18:41)
[2021-12-06] MEDS: VANCOMYCIN 1500 MG/NS 500 ML IVPB IV SCH ×2 (18:50)
[2021-12-06 20:00] VITALS: BP 145/69
[2021-12-06] MEDS: DOCUSATE SODIUM 100 MG (COLACE) CAP PO SCH (20:32)
[2021-12-06] MEDS: ACETAMINOPHEN 325 MG TABLET PO PRN (20:34)
[2021-12-07] VITALS (7 sets, daily range): BP systolic 128–164; BP diastolic 61–79
[2021-12-07] MEDS: CEFEPIME 1,000 MG/NS 50 ML IVPB IV SCH ×8 (02:52→21:42)
[2021-12-07 05:57] LABS: HEMATOCRIT 33 % (35-52); HEMOGLOBIN 10.2 g/dL (11.5-16.0); MEAN CORPUSCULAR HEMOGLOBIN 28 pg (25-34); MEAN CORPUSCULAR HGB CONC 31 g/dL (32-36); MEAN CORPUSCULAR VOLUME 89 fL (80-99); PLATELET COUNT 195 10^3/uL (130-400); WHITE BLOOD COUNT 5.3 10^3/uL (4.3-11.0)
[2021-12-07] MEDS: LACTOBACILLUS Acidoph/Bulgar 1 GM (LACTINEX) PACKET PO SCH (06:30)
[2021-12-07] MEDS: inSUlin ASPART (NovoLOG) 1 UNIT/0.01 ML (CHARGE PER UNIT) SC SCH ×4 (06:31→21:42)
[2021-12-07] MEDS: amLODIPine 5 MG (NORVASC) TAB PO SCH (08:01)
[2021-12-07] MEDS: DOCUSATE SODIUM 100 MG (COLACE) CAP PO SCH ×2 (08:01→21:42)
[2021-12-07] MEDS: LACTATED RINGERS 1,000 ML IV SCH ×2 (08:01→16:59)
[2021-12-07] MEDS: ENALAPRIL 10 MG (VASOTEC) TAB PO SCH ×2 (08:04→21:42)
[2021-12-07] MEDS ORDERED: COLE1TAB PO (08:58)
[2021-12-07] MEDS ORDERED: INSU100V3 SC (08:58)
[2021-12-07] MEDS ORDERED: NPH,100V SC (08:58)
[2021-12-07] MEDS ORDERED: ENAL20TA16 PO (08:58)
--- NOTE | 2021-12-07 09:49 | Progress Note - Surgery ---
Subjective Date Seen by a Provider: Dec 07, 2021 Time Seen by a Provider: 09:47 Subjective/Events-last exam Patient not having any pain. Wound vac to right foot no issues. Patient denies n/v fever sweats chills shortness of breath or chest pain. Concerned about walking and balance. Focused Exam Lactate Level 12/04/21 15:00: Lactic Acid Level 2.48*H 12/04/21 16:33: Lactic Acid Level 1.32 Objective Exam Vital Signs Date Time Temp Pulse Resp B/P (MAP) Pulse Ox O2 Delivery O2 Flow Rate FiO2 12/07/21 08:05 36.7 72 18 149/72 (97) 96 Room Air 12/07/21 04:37 36.2 64 18 131/68 (89) 96 Room Air 12/07/21 00:14 36.5 79 18 128/79 (95) 96 Room Air 12/06/21 20:30 Room Air 12/06/21 20:00 37.7 85 18 145/69 (94) 96 Room Air 12/06/21 16:00 36.6 96 18 153/71 (98) 97 Room Air 12/06/21 11:32 36.8 77 20 122/61 (81) 98 Room Air I & O 12/07/21 07:00 Intake Total 4177 ml Output Total 2625 ml Balance 1552 ml Capillary Refill : Less Than 3 SecondsLess Than 3 Seconds General Appearance: No Apparent Distress, WD/WN HEENT: Normal ENT Inspection Neck: Normal Inspection, Non Tender, Supple Respiratory: Chest Non Tender, No Accessory Muscle Use, No Respiratory Distress Cardiovascular: Regular Rate, Rhythm, No JVD, Systolic Murmur Peripheral Pulses: 0 Dorsalis Pedis (R), 0 Left Dors-Pedis (L); 2+ Radial Pulses (R), 2+ Radial Pulses (L) Gastrointestinal: normal bowel sounds, non tender, soft Extremity: No Calf Tenderness, No Pedal Edema, Other (right foot with amputation of great toe with wound vac in place) Neurologic/Psychiatric: Alert, Oriented x3 Skin: Normal Color, Warm/Dry, Other (right foot with amputation of great toe with wound vac in place) Lymphatic: No Adenopathy (Head and neck) Results Lab Laboratory Tests 12/06/21 11:02: Glucometer 217H 12/06/21 15:52: Glucometer 153H 12/06/21 18:00: Vancomycin Level Trough 11.0 12/06/21 20:13: Glucometer 162H 12/07/21 05:40: White Blood Count 5.3, Red Blood Count 3.68L, Hemoglobin 10.2L, Hematocrit 33L, Mean Corpuscular Volume 89, Mean Corpuscular Hemoglobin 28, Mean Corpuscular Hemoglobin Concent 31L, Red Cell Distribution Width 13.5, Platelet Count 195, Mean Platelet Volume 12.0 12/07/21 06:28: Glucometer 124H Microbiology 12/05/21 MRSA Screen - Final, Complete MRSA not isolated 12/04/21 Blood Culture - Preliminary, Resulted No growth Assessment/Plan Assessment/Plan Assessment/Plan S/P Partial first ray amputation of RLE with wound-vac placement for Osteomyelitis Diabetes - Insulin dependent Arthritis HTN Plan: Continue abx IV fluids Encourage ICS and ambulation; will get PT consult and walker (she uses one at home) Consider IPR Social work consult for eventual home health needs MILDRED GERMAIN DO Dec 07, 2021 09:49
[2021-12-07] MEDS: LACTOBACILLUS ACIDOPHILUS (PROBIOTIC) CAPSULE PO SCH ×3 (11:52→21:42)
[2021-12-07] MEDS: ENOXAPARIN 40 MG/0.4 ML (LOVENOX) SYR SC SCH (11:52)
--- NOTE | 2021-12-07 12:09 | Physical Therapy Evaluation ---
PT Evaluation-General Medical Diagnosis Admission Date Dec 04, 2021 at 16:25 Medical Diagnosis: Osteomyelitis/s/p great right toe amputation Onset Date: Dec 04, 2021 Therapy Diagnosis Therapy Diagnosis: Weakness, debility Height/Weight Height (Feet): 6 Weight (Pounds): 240 Precautions Precautions/Isolations: Contact Isolation, Fall Prevention, Pressure Ulcer Referral Physician: Brad Reason for Referral: Evaluation/Treatment Medical History Pertinent Medical History: DM, HTN Current History Patient reported to ER via EMS complaining of a wound on her R foot that was not healing and was still infected. Reviewed History: Yes Social History Home: Single Level Current Living Status: Alone Patient reports that she has not left her house in two years. Patient gets groceries delivered to her and has family that checks on her Prior Prior Level of Function SCALE: Activities may be completed with or without assistive devices. 7-Qcjwxegzul-vaftfvi completes the activity by him/herself with no assistance from a helper. 5-Set-up or Clean-up Assistance-helper sets up or cleans up; patient completes activity. [place] assists only prior to or following the activity. 4-Supervision or Touching Assistance-helper provides verbal cues and/or touching/steadying and/or contact guard assistance as patient completes activity. Assistance may be provided throughout the activity or intermittently. 3-Partial/Moderate Assistance-helper does LESS THAN HALF the effort. [place] lifts, holds or supports trunk or limbs, but provides less than half the effort. 2-Substantial/Maximal Assistance-helper does MORE THAN HALF the effort. [place] lifts or holds trunk or limbs and provides more than half the effort. 0-[place]-neibiy does ALL the effort. Patient does none of the effort to complete the activity. Or, the assistance of 2 or more helpers is required for the patient to complete the activity. If activity was not attempted, code reason: 7-Patient Refused. 9-Not Applicable-not attempted and the patient did not perform the activity before the current illness, exacerbation or injury. 10-Not Attempted due to Environmental Limitations-(lack of equipment, weather restraints, etc.). 88-Not Attempted due to Medical Conditions or Safety Concerns. Bed Mobility: 6 Transfers (B,C,W/C): 6 Gait: 6 Indoor Mobility (Ambulation): Independent Prior Devices Use: Walker Patient reports that she uses a walker to get around her house. Patient reports that she doesn't move around very much at home and has not left her house in two years. PT Evaluation-Current Subjective Patient presents sitting in bed and agrees to try and move to the chair. Objective Patient Orientation: Person, Place, Time, Situation Attachments: Drains (wound vac R foot), Sawyer Catheter, IV ROM/Strength ROM Lower Extremities WFL Strength Lower Extremities 4/5 strength bilaterally grossly Integumentary/Posture Integumentary refer to nursing notes Bladder Incontinence: Sawyer Cath Posture WFL Neuromuscular (Tone, Coordination, Reflexes) grossly intact Sensory Vision: Functional Hearing: Functional Sensation Right Lower Extremit: Impaired Sensation Left Lower Extremity: Impaired Transfers Lying to Sitting/Side of Bed(Q: 3 Sit to Stand (QC): 3 Chair/Qct-ol-Hdeeg Xfer(QC): 3 Patient required min assist to perform bed mobility and perform sit to stand transfer. Gait Does the Patient Walk?: Yes Mode of Locomotion: Walk Anticipated Mode of Locomotion: Both Distance: 3 steps Gait Assistive Device: FWW Comments/Gait Description Patient ambulated for 3 steps to move from EOB to the chair with min/mod assist. Balance Sitting Static: Normal Sitting Dynamic: Normal Standing Static: Fair Standing Dynamic: Fair Assessment/Needs Patient performed bed mobility and transfers with min/mod assistance. Patient reports that she would like to get strong enough to return home and not have to go to a shelter but she also states she understands that she needs to go to heal. Patient requires assistance with transfers and ambulation and needs to increase strength and endurance to return to PLOF. Rehab Potential: Guarded PT Tap Grinder Goals Tap Grinder Goals PT Tap Grinder Goals Time Frame: Dec 19, 2021 Roll Left & Right (QC): 6 Sit to Lying (QC): 6 Lying-Sitting on Side/Bed(QC): 6 Sit to Stand (QC): 6 Chair/Ims-ga-Cyzjs Xfer(QC): 6 Toilet Transfer (QC): 6 Does the Patient Walk: Yes Walk 10 feet (QC): 6 Walk 50ft with 2 Turns (QC): 6 Walk 150 ft (QC): 6 PT Plan Problem List Problem List: Activity Tolerance, Functional Strength, Safety, Balance, Gait, Transfer, Bed Mobility, ROM Treatment/Plan Treatment Plan: Continue Plan of Care Treatment Plan: Bed Mobility, Education, Functional Activity Mary Jo, Functional Strength, Gait, Safety, Therapeutic Exercise, Transfers Treatment Duration: Dec 19, 2021 Frequency: 6 times per week Estimated Hrs Per Day: .25 hour per day Safety Risks/Education Patient Education: Correct Positioning, Safety Issues Teaching Recipient: Patient Teaching Methods: Discussion Time/GCodes Time In: 1029 Time Out: 1049 Total Billed Treatment Time: 20 Total Billed Treatment 1 Visit EVModC 20 min FRED MARIE PT Dec 07, 2021 12:09
--- NOTE | 2021-12-07 14:20 | Occupational Therapy Eval ---
OT Evaluation-General/PLF Medical Diagnosis Admission Date Dec 04, 2021 at 16:25 Medical Diagnosis: Osteomyelitis/s/p great right toe amputation Onset Date: Dec 04, 2021 Therapy Diagnosis Therapy Diagnosis: decreased ADL status Height/Weight Height (Feet): 6 Weight (Pounds): 240 Precautions Precautions/Isolations: Contact Isolation, Fall Prevention, Pressure Ulcer Referral Physician: Brad Referral Reason: Evaluation/Treatment Medical History Pertinent Medical History: DM, HTN Additional Medical History HTN, DM, arthritis Current History 11/12/21 callus on R foot came off with pressure causing a wound ever since. Home health care sent pt to ED due to foot ulcer with osteomyelitis over the R 1st metatarsal. s/p R great toe amputation Social History Home: Single Level Current Living Status: Alone ADL-Prior Level of Function SCALE: Activities may be completed with or without assistive devices. 1-Eunkxrvrfy-xeyxber completes the activity by him/herself with no assistance from a helper. 5-Set-up or Clean-up Assistance-helper sets up or cleans up; patient completes activity. [place] assists only prior to or following the activity. 4-Supervision or Touching Assistance-helper provides verbal cues and/or touching/steadying and/or contact guard assistance as patient completes activity. Assistance may be provided throughout the activity or intermittently. 3-Partial/Moderate Assistance-helper does LESS THAN HALF the effort. [place] lifts, holds or supports trunk or limbs, but provides less than half the effort. 2-Substantial/Maximal Assistance-helper does MORE THAN HALF the effort. [place] lifts or holds trunk or limbs and provides more than half the effort. 8-Uhbwhqgob-fwpybp does ALL the effort. Patient does none of the effort to complete the activity. Or, the assistance of 2 or more helpers is required for the patient to complete the activity. If activity was not attempted, code reason: 7-Patient Refused. 9-Not Applicable-not attempted and the patient did not perform the activity before the current illness, exacerbation or injury. 10-Not Attempted due to Environmental Limitations-(lack of equipment, weather restraints, etc.). 88-Not Attempted due to Medical Conditions or Safety Concerns. ADL PLOF Comments Pt reports IND with ADLs and functional mobility within her home using FWW. She hasn't left her home in a couple of years due to difficulty getting up/down steps. She has groceries delivered to her house. Self Care: Independent Functional Cognition: Independent OT Current Status Subjective Pt up in recliner, agreeable to OT tx. Mental Status/Objective Patient Orientation: Person, Place, Situation Attachments: Drains (wound vac), Sawyer Catheter Current Hand Dominance: Right Upper Extremity ROM WFL, BUE shoulder flexion to approx 140 degrees Upper Extremity Coordination WFL Upper Extremity Sensation decreased sensation bilateral hands. Upper Extremity Strength grossly 3+/5 ADL-Treatment Eating (QC): 6 (Per pt report) Oral Hygiene (QC): 5 (Per clinical judgment.) Other Treatments Pt up in recliner, agreeable to OT Tx. OT educated pt on purpose and benefit of OT, and pt provided information about PLOF and home set up. Pt attempting to decide what she wants for lunch, indicates she is able to call dietary independently, and eat lunch independently. Pt indicates she feels like her arms are pretty weak causing difficulties with holding onto the walker and using the walker. In order to increase BUE strength and activity tolerance, pt completed x10 reps each of the following BUE exercises: shoulder flexion, elbow flexion/extension, front punch, and finger flexion/extension. Post tx, pt up in recliner, call light in reach and all needs met. Education OT Patient Education: Correct positioning, Energy conservation, Modified ADL techniques, Progress toward Goal/Update tx plan, Purpose of tx/functional activities, Rehab process Teaching Recipient: Patient Teaching Methods: Discussion Response to Teaching: Verbalize Understanding OT Mcfp Goals Mcfp Goals Time Frame: Dec 18, 2021 Eating (QC): 6 Oral Hygiene (QC): 6 Toileting Hygiene (QC): 4 Shower/Bathe Self (QC): 3 Upper Body Dressing (QC): 5 Lower Body Dressing (QC): 3 On/Off Footwear (QC): 3 Additional Goals: 1-Demonstrate ADL Tasks, 2-Verbalize Understanding, 3- ImproveStrength/Mary Jo 1=Demonstrate adherence to instructed precautions during ADL tasks. 2=Patient will verbalize/demonstrate understanding of assistive devices/modifications for ADL. 3=Patient will improve strength/tolerance for activity to enable patient to perform ADL's. OT Education/Plan Problem List/Assessment Assessment: Decreased Activ Tolerance, Decreased UE Strength, Impaired Funct Balance, Impaired I ADL's, Impaired Self-Care Skills Discharge Recommendations Plan/Recommendations: Continue POC Treatment Plan/Plan of Care Patient would benefit from OT for education, treatment and training to promote independence in ADL's, mobility, safety and/or upper extremity function for ADL's. Plan of Care: ADL Retraining, Functional Mobility, UE Funct Exercise/Act Treatment Duration: Dec 18, 2021 Frequency: 3 times per week (3-5 times per week) Estimated Hrs Per Day: .25 hour per day Rehab Potential: Guarded Time/GCodes Start Time: 13:53 Stop Time: 14:09 Total Time Billed (hr/min): 16 Billed Treatment Time 1, SERGIO AVINA OT Dec 07, 2021 14:20
--- NOTE | 2021-12-07 16:00 | Progress Note ---
Subjective Subjective Date Seen by Provider: Dec 07, 2021 Time Seen by Provider: 08:40 PT IS AN 86 Y/O FEMALE WHO IS A PATIENT IN MY MEDICAL PRACTICE. SHE HAS NOT BEEN IN THE OFFICE SINCE 2018, AND LAST APPOINTMENT WAS A TELEMEDICINE APPOINTMENT IN JUNE OF 2021. PT WAS ENCOURAGED TO BE SEEN IN PERSON DUE TO THE WOUND ON HER FOOT, BUT SHE REFUSED TO ARRANGE OR HAVE THIS STITCHER FEEDER ARRANGE TRANSPORT. SHE AGREED TO HOME HEALTH THROUGH [facility] AND WAS BEING TREATED FOR THE WOUND ON HER FOOT. SHE FINALLY AGREED TO ADMISSION TO THE HOSPITAL AND WAS TRANSPORTED TO THE HOSPITAL VIA AMBULANCE AND HAD OSTEOMYELITIS WITH NEED FOR AMPUTATION OF THE GREAT TOE ON THE RIGHT FOOT. TODAY SHE STATES THAT SHE IS NOT SURE HOW SHE WILL MANAGE AT HOME, AND CANNOT BEAR MUCH WEIGHT ON HER FOOT. SHE REPORTS NAUSEA/ABDOMINAL DISCOMFORT - THINKING IT IS THE GREASY FOOD SHE HAS BEEN GIVEN CAUSING HER GI TRACT TO BE SO UPSET. Review of Systems General: No Chills; Fatigue HEENT: No Visual Changes; Other (Mouth pain) Pulmonary: No Dyspnea, No Cough Cardiovascular: No: Chest Pain, Palpitations Gastrointestinal: Nausea, Abdominal Pain, Constipation (HAS NOT HAD A BOWEL MOVEMENT SINCE ADMISSION); No: Vomiting Genitourinary: No Dysuria; Other (REILLY IN PLACE) Musculoskeletal: foot pain (RIGHT FOOT - WITH PRESSURE); No: leg pain Neurological: No: Weakness, Confusion All Other Systems Reviewed All Other Systems Reviewed: Yes (Negative excepted noted.) Objective Exam Vital Signs Vital Signs Date Time Temp Pulse Resp B/P (MAP) Pulse Ox O2 Delivery O2 Flow Rate FiO2 12/07/21 11:56 36.5 73 18 154/71 (98) 95 Room Air 12/07/21 09:47 Room Air 12/07/21 08:05 36.7 72 18 149/72 (97) 96 Room Air 12/07/21 04:37 36.2 64 18 131/68 (89) 96 Room Air 12/07/21 00:14 36.5 79 18 128/79 (95) 96 Room Air 12/06/21 20:30 Room Air 12/06/21 20:00 37.7 85 18 145/69 (94) 96 Room Air 12/06/21 16:00 36.6 96 18 153/71 (98) 97 Room Air I & O 12/07/21 07:00 Intake Total 4177 ml Output Total 2625 ml Balance 1552 ml General Appearance: No Apparent Distress, WD/WN HEENT: Normal ENT Inspection, Pharynx Normal Neck: Normal Inspection, Non Tender, Supple Respiratory: Chest Non Tender, Lungs Clear, Normal Breath Sounds, No Accessory Muscle Use, No Respiratory Distress Cardiovascular: Regular Rate, Rhythm, No JVD, Systolic Murmur Gastrointestinal: Normal Bowel Sounds, No Organomegaly, Non Tender, Soft Rectal: Deferred Back: No CVA Tenderness Extremity: No Calf Tenderness, No Pedal Edema, Other (RIGHT FOOT WITH WOUND VAC IN PLACE OVER THE SITE OF HER GREAT TOE AMPUTATION, CLAW TOES) Neurologic/Psychiatric: Alert, Oriented x3 Skin: Normal Color, Warm/Dry, Other (right foot with amputation of great toe with wound vac in place) Lymphatic: No Adenopathy (Head and neck) Results Lab Laboratory Tests 12/06/21 18:00: Vancomycin Level Trough 11.0 12/06/21 20:13: Glucometer 162H 12/07/21 05:40: White Blood Count 5.3, Red Blood Count 3.68L, Hemoglobin 10.2L, Hematocrit 33L, Mean Corpuscular Volume 89, Mean Corpuscular Hemoglobin 28, Mean Corpuscular Hemoglobin Concent 31L, Red Cell Distribution Width 13.5, Platelet Count 195, Mean Platelet Volume 12.0 12/07/21 06:28: Glucometer 124H 12/07/21 10:57: Glucometer 228H 12/07/21 15:26: Glucometer 153H Microbiology 12/05/21 MRSA Screen - Final, Complete MRSA not isolated 12/04/21 Blood Culture - Preliminary, Resulted No growth Assessment/Plan Assessment/Plan Admission Dx 1. Right First Metatarsal Osteomyelitis/Diabetic Foot Ulcer 2. Hypertension 3. DM--insulin requiring- 4. Chronic Diarrhea Assessment and Plan OSTEOMYELITIS RIGHT GREAT TOE DIABETES WITH FOOT ULCERATION CHRONIC HYPERTENSION DIABETES MELLITUS - INSULIN DEPENDENCE CHRONIC DIARRHEA ABDOMINAL PAIN WEAKNESS ANEMIA OSTEOMYELITIS RIGHT GREAT TOE WITH DIABETES WITH FOOT ULCERATION - PT IS STATUS POST AMPUTATION OF RIGHT GREAT TOE WITH WOUND VAC IN PLACE - PT ON VANCOMYCIN AND CEFEPIME - WAITING ON MICRO REPORT FROM SURGICAL CULTURE CHRONIC HYPERTENSION - STABLE ON HOME REGIMEN - MONITOR PRESSURES DIABETES MELLITUS - INSULIN DEPENDENCE - SLIGHTLY ELEVATED, PT ON SLIDING SCALE INSULIN, MONITOR FSBS CHRONIC DIARRHEA WITH ABDOMINAL PAIN - ADVISED AVOIDANCE OF THE GREASY FOODS THAT CAUSE ABDOMINAL DISCOMFORT. - PROBIOTICS STARTED WEAKNESS - WILL NEED TO START THERAPY - ANEMIA - MONITOR H AND H, WILL CHECK IRON PANEL DVT PROPHYLAXIS WITH LOVENOX GI PROPHYLAXIS WITH PPI AND PROBIOTICS. DISCUSSED WITH PT - ADVISED THAT WE WILL SEE IF WE CAN GET HER TO LONG-TERM FOR WOUND CARE AND STRENGTHENING. PT'S DTR LIVES IN [place] - SHE IS NOT SURE THAT SHE WANTS TO GO TO [place] FOR LONG-TERM CARE, SHE WOULD RATHER LOOK AT [facility] FOR LONG-TERM CARE. SHE WILL NEED HELP WITH GETTING HER MAIL RE-ROUTED. JANNIE HORVATH MD Dec 07, 2021 16:00
[2021-12-07] MEDS: VANCOMYCIN 1500 MG/NS 500 ML IVPB IV SCH ×2 (18:58)
[2021-12-08 04:07] VITALS: BP 118/62
[2021-12-08] MEDS: CEFEPIME 1,000 MG/NS 50 ML IVPB IV SCH ×4 (04:07→08:38)
[2021-12-08] MEDS: LACTATED RINGERS 1,000 ML IV SCH (04:47)
[2021-12-08] MEDS: inSUlin ASPART (NovoLOG) 1 UNIT/0.01 ML (CHARGE PER UNIT) SC SCH ×2 (05:02→12:04)
[2021-12-08] MEDS: LACTOBACILLUS ACIDOPHILUS (PROBIOTIC) CAPSULE PO SCH ×2 (06:50→12:03)
[2021-12-08 08:00] VITALS: BP 127/58
--- NOTE | 2021-12-08 08:15 | Progress Note ---
Subjective Subjective Date Seen by Provider: Dec 08, 2021 Time Seen by Provider: 07:30 Ms. Sanabria is 3 days s/p partial ray amputation of 1st metatarsal with wound- vac placement. She denies pain this morning. She reports that her dressing was changed yesterday and the wound-vac is back in place. She endorses some GI upset but says it is improving.She reports that she is working with PT and they have been able to help her move to and from the chair. She has started to walk with her walker and assistance from PT. She says that her son-in-law has been helping her out with mail forwarding and coordinating her care. She says she is tired of laying in bed. She says she feels weaker than she did during her last surgery 12 years ago. Review of Systems General: No Chills; Fatigue HEENT: No Visual Changes; Other (Mouth pain) Pulmonary: No Dyspnea, No Cough Cardiovascular: No: Chest Pain, Palpitations Gastrointestinal: Nausea, Abdominal Pain (Improving since yesterday); No: Vomiting Genitourinary: No Dysuria; Incontinence Musculoskeletal: leg pain (Neuropathic); No: foot pain Neurological: No: Weakness, Confusion Objective Exam Vital Signs Vital Signs Date Time Temp Pulse Resp B/P (MAP) Pulse Ox O2 Delivery O2 Flow Rate FiO2 12/08/21 04:07 36.6 79 18 118/62 (80) 97 Room Air 12/07/21 23:18 36.4 85 20 135/70 (91) 96 Room Air 12/07/21 20:59 Room Air 12/07/21 20:37 36.6 89 18 164/75 (104) 94 Room Air 12/07/21 16:00 36.4 68 20 141/61 (87) 98 Room Air 12/07/21 11:56 36.5 73 18 154/71 (98) 95 Room Air 12/07/21 09:47 Room Air I & O 12/08/21 07:00 Intake Total 790 ml Output Total 2175 ml Balance -1385 ml General Appearance: No Apparent Distress, WD/WN HEENT: PERRL/EOMI; No Scleral Icterus (L), No Scleral Icterus (R) Neck: Normal Inspection, Non Tender; No Lymphadenopathy (L), No Lymphadenopathy (R) Respiratory: Chest Non Tender, Lungs Clear, Normal Breath Sounds, No Accessory Muscle Use, No Respiratory Distress Cardiovascular: Regular Rate, Rhythm, Normal Peripheral Pulses, Systolic Murmur Gastrointestinal: Normal Bowel Sounds, No Organomegaly, Non Tender, Soft Extremity: Non Tender, No Calf Tenderness, No Pedal Edema, Other (Right foot with wound-vac in place) Neurologic/Psychiatric: Alert, Oriented x3, Normal Mood/Affect Skin: Normal Color, Warm/Dry, Other (Right foot with amputation of great toe with wound vac in place) Lymphatic: No Adenopathy (Head and neck) Results Lab Laboratory Tests 12/07/21 10:57: Glucometer 228H 12/07/21 15:26: Glucometer 153H 12/07/21 20:06: Glucometer 202H 12/08/21 04:49: Glucometer 108 Microbiology 12/05/21 MRSA Screen - Final, Complete MRSA not isolated 12/04/21 Blood Culture - Preliminary, Resulted No growth Assessment/Plan Assessment/Plan Assessment and Plan Assessment: Ulceration of right 1st metatarsal with osteomyelitis - Partial first ray amputation of RLE with wound-vac placement yesterday Diabetes - Insulin dependent Arthritis HTN h/o breast cancer Plan: Continue cefepime and vancomycin for osteomyelitis. Awaiting definitive culture results Continue IV fluids Encourage ICS and ambulation with PT. Walks with walker. Social work consulted. Discharge to [facility] for rehab with return to home after JUAN F SOLANO Dec 08, 2021 08:15
[2021-12-08] MEDS: DOCUSATE SODIUM 100 MG (COLACE) CAP PO SCH (08:37)
[2021-12-08] MEDS: amLODIPine 5 MG (NORVASC) TAB PO SCH (08:38)
[2021-12-08] MEDS: ENALAPRIL 10 MG (VASOTEC) TAB PO SCH (08:38)
[2021-12-08] MEDS ORDERED: PANTOPRAZOLE 40 MG (PROTONIX) TAB PO SCH (09:00)
--- NOTE | 2021-12-08 09:16 | Physical Therapy Daily Note ---
PT Daily Note-Current Subjective Patient presents laying in bed and agrees to move to her chair for therapy and to eat breakfast. Mental Status Patient Orientation: Person, Place, Time, Situation Attachments: Drains (wound vac), Sawyer Catheter, IV Transfers SCALE: Activities may be completed with or without assistive devices. 8-Qzqloisbpl-nsoroqb completes the activity by him/herself with no assistance from a helper. 5-Set-up or Clean-up Assistance-helper sets up or cleans up; patient completes activity. [place] assists only prior to or following the activity. 4-Supervision or Touching Assistance-helper provides verbal cues and/or t ouching/steadying and/or contact guard assistance as patient completes activity. Assistance may be provided throughout the activity or intermittently. 3-Partial/Moderate Assistance-helper does LESS THAN HALF the effort. [place] lifts, holds or supports trunk or limbs, but provides less than half the effort. 2-Substantial/Maximal Assistance-helper does MORE THAN HALF the effort. [place] lifts or holds trunk or limbs and provides more than half the effort. 2-Mmkpvhpkh-ciggen does ALL the effort. Patient does none of the effort to complete the activity. Or, the assistance of 2 or more helpers is required for the patient to complete the activity. If activity was not attempted, code reason: 7-Patient Refused. 9-Not Applicable-not attempted and the patient did not perform the activity before the current illness, exacerbation or injury. 10-Not Attempted due to Environmental Limitations-(lack of equipment, weather restraints, etc.). 88-Not Attempted due to Medical Conditions or Safety Concerns. Lying to Sitting/Side of Bed(Q: 3 Sit to Stand (QC): 3 Chair/Xdb-dp-Cpzen Xfer(QC): 3 Patient required min assist for all transfers and bed mobility activities. Weight Bearing Right Lower Extremity: Right Weight Bearing/Tolerated Gait Training Does the Patient Walk?: Yes Distance: 2 steps Gait Assistive Device: FWW Patient stood and was able to take a couple steps for a stand pivot transfer to bed. Patient required min assist for transfer and cues for safety when sitting. Exercises Supine Ex: Ankle pumps, Quad Set, Glut sets, Heel Slides, Straight leg raise Standing Reps: 10 Treatments Supine exercises Stand Pivot transfer Standing endurance 3 min Assessment Patient completed bed exercises, transfers, and standing endurance. Patient was able to stand for about 3 minutes with FWW and min assist. Patient requested to sit after 3 minutes due to fatigue and weakness in bilateral LE. Patient performed bed exercises without difficulty. Patient performed sit to stand transfers and was able to pivot to the chair with min assist. PT Creative Producer Goals [facility] Goals PT Creative Producer Goals Time Frame: Dec 19, 2021 Roll Left & Right (QC): 6 Sit to Lying (QC): 6 Lying-Sitting on Side/Bed(QC): 6 Sit to Stand (QC): 6 Chair/Gdx-mq-Hymxy Xfer(QC): 6 Toilet Transfer (QC): 6 Does the Patient Walk: Yes Walk 10 feet (QC): 6 Walk 50ft with 2 Turns (QC): 6 Walk 150 ft (QC): 6 PT Plan Problem List Problem List: Activity Tolerance, Functional Strength, Safety, Balance, Gait, Transfer, Bed Mobility, ROM Treatment/Plan Treatment Plan: Continue Plan of Care Treatment Plan: Bed Mobility, Education, Functional Activity Mary Jo, Functional Strength, Gait, Safety, Therapeutic Exercise, Transfers Treatment Duration: Dec 19, 2021 Frequency: 6 times per week Estimated Hrs Per Day: .25 hour per day Safety Risks/Education Patient Education: Gait Training, Reviewed Precautions, Safety Issues Teaching Recipient: Patient Teaching Methods: Discussion Time/GCodes Time In: 815 Time Out: 838 Total Billed Treatment Time: 23 Total Billed Treatment 1 Visit Ex 15 min FA 8 min FRED MARIE PT Dec 08, 2021 09:16
--- NOTE | 2021-12-08 09:55 | Occupational Ther Daily Note ---
OT Current Status-Daily Note Subjective Pt alert, sitting in recliner when OT entered. Pt agreed to therapy. No c/o pain reported at this time. Mental Status/Objective Patient Orientation: Person, Place, Time, Situation ADL-Treatment Therapy Code Descriptions/Definitions Functional [place] Measure: 0=Not Assessed/NA 4=Minimal Assistance 1=Total Assistance 5=Supervision or Setup 2=Maximal Assistance 6=Modified [place] 3=Moderate Assistance 7=Complete IndependenceSCALE: Activities may be completed with or without assistive devices. 4-Yzuurzjoun-jwfojag completes the activity by him/herself with no assistance from a helper. 5-Set-up or Clean-up Assistance-helper sets up or cleans up; patient completes activity. Robbins assists only prior to or following the activity. 4-Supervision or Touching Assistance-helper provides verbal cues and/or touching/steadying and/or contact guard assistance as patient completes activity. Assistance may be provided throughout the activity or intermittently. 3-Partial/Moderate Assistance-helper does LESS THAN HALF the effort. Robbins lift s, holds or supports trunk or limbs, but provides less than half the effort. 2-Substantial/Maximal Assistance-helper does MORE THAN HALF the effort. Robbins lifts or holds trunk or limbs and provides more than half the effort. 1-Jcjgspodc-xmslox does ALL the effort. Patient does none of the effort to complete the activity. Or, the assistance of 2 or more helpers is required for the patient to complete the activity. If activity was not attempted, code reason: 7-Patient Refused. 9-Not Applicable-not attempted and the patient did not perform the activity before the current illness, exacerbation or injury. 10-Not Attempted due to Environmental Limitations-(lack of equipment, weather restraints, etc.). 88-Not Attempted due to Medical Conditions or Safety Concerns. Other Treatment Skilled instruction required of light theraband exercises. Pt completed x2 sets of 10 reps of BUE yellow theraband exercises while seated in recliner in all planes for increase BUE strength for improved independence with ADLs. Pt tolerated exercises and required 1 resting break due to fatigue. Verbal and physical demonstration provided of each exercise for proper technique. After session, pt sitting in recliner. All needs met and call light in reach. Education OT Patient Education: Energy conservation, Exercise program, Home exercise program Teaching Recipient: Patient Teaching Methods: Demonstration, Handout Response to Teaching: Verbalize Understanding, Return Demonstration OT Welding Inspector Goals Welding Inspector Goals Time Frame: Dec 18, 2021 Eating (QC): 6 Oral Hygiene (QC): 6 Toileting Hygiene (QC): 4 Shower/Bathe Self (QC): 3 Upper Body Dressing (QC): 5 Lower Body Dressing (QC): 3 On/Off Footwear (QC): 3 Additional Goals: 1-Demonstrate ADL Tasks, 2-Verbalize Understanding, 3- ImproveStrength/Mary Jo 1=Demonstrate adherence to instructed precautions during ADL tasks. 2=Patient will verbalize/demonstrate understanding of assistive devices/modifications for ADL. 3=Patient will improve strength/tolerance for activity to enable patient to perform ADL's. OT Education/Plan Problem List/Assessment Assessment: Decreased Activ Tolerance, Decreased UE Strength, Impaired I ADL's, Impaired Self-Care Skills Discharge Recommendations Plan/Recommendations: Continue POC Treatment Plan/Plan of Care Patient would benefit from OT for education, treatment and training to promote independence in ADL's, mobility, safety and/or upper extremity function for ADL's. Plan of Care: ADL Retraining, Functional Mobility, UE Funct Exercise/Act Treatment Duration: Dec 18, 2021 Frequency: 3 times per week (3-5 times per week) Estimated Hrs Per Day: .25 hour per day Rehab Potential: Guarded Time/GCodes Start Time: 09:10 Stop Time: 09:25 Total Time Billed (hr/min): 15 Billed Treatment Time 1 visit: EX 1 (15 mins) LEON SIMS Dec 08, 2021 09:55
[2021-12-08 11:48] VITALS: BP 132/73
[2021-12-08] MEDS: ENOXAPARIN 40 MG/0.4 ML (LOVENOX) SYR SC SCH (12:04)
[2021-12-08] MEDS ORDERED: ACET325T49 PO (12:49)
[2021-12-08] MEDS ORDERED: LACT1CAP7 PO (12:49)
[2021-12-08] MEDS ORDERED: DOCU100C37 PO (12:49)
[2021-12-08] MEDS ORDERED: AMLO-250 PO (12:49)
--- NOTE | 2021-12-08 12:52 | Discharge Inst-Skilled Nursing ---
Discharge Inst-Skilled NF Reconcile Patient Problems Problems Reviewed?: Yes Patient Instructions Patient Problems: OSTEOMYELITIS RIGHT GREAT TOE DIABETES WITH FOOT ULCERATION CHRONIC HYPERTENSION DIABETES MELLITUS - INSULIN DEPENDENCE CHRONIC DIARRHEA ABDOMINAL PAIN WEAKNESS ANEMIA Consult/Follow Up/Orders Follow Up Appt.: 1 wk [facility] [address] ivan Skilled NF Admit to: [facility] (SNF) I certify that SNF services are required to be given on an inpatient basis because of the above named patient's need for senior living care on a continuing basis for the conditions(s) for which he/she was receiving inpatient hospital services prior to his/her transfer to the [facility]. Halfway Facility Order: Nursing Services, [place]ad Compressor Operator Adjuster-Evaluate & Treat, Physical Therapy-Evaluate & Treat, Wound Care-Eval/Treat (wound vac orders per dr. ivan) Oxygen Delivery Method: Room Air Discharge Diet: ADA Diet (1600kcal diet) Daily Activity as Tolerated: Yes Resuscitation Status: Do Not Resuscitate New & Resume Previous Orders New & Resume Previous Orders fsbs ac and hs call physician if fsbs is at or above 350 fax fsbs records to [facility] weekly Jannie Pedraza Dec 08, 2021 12:50 JANNIE PEDRAZA MD Dec 08, 2021 12:52
--- NOTE | 2021-12-08 12:53 | Discharge Summary ---
Diagnosis/Chief Complaint Date of Admission Dec 04, 2021 at 16:25 Date of Discharge Discharge Date: Dec 08, 2021 Discharge Time: 1400 Discharge Summary Discharge Physical Examination Allergies: Coded Allergies: ciprofloxacin (Verified Allergy, Mild, ANXIETY, 12/04/21) codeine (Verified Allergy, Mild, VOMITING, 12/04/21) Penicillins (Verified Allergy, Unknown, RASH, 12/04/21) STATES ITCHED AND "DROVE HER CRAZY" morphine (Verified Allergy, Unknown, N/V, 12/04/21) orange (Verified Adverse Reaction, Unknown, 12/04/21) Vitals & I&Os Vital Signs Date Time Temp Pulse Resp B/P (MAP) Pulse Ox O2 Delivery O2 Flow Rate FiO2 12/08/21 11:48 35.9 76 20 132/73 (92) 99 Room Air 12/05/21 09:25 1 Hospital Course Pending Labs Laboratory Tests 12/08/21 10:53: Glucometer 230 Discharge Instructions to patient/family Please see electronic discharge instructions given to patient. Discharge Medications Reviewed and agree with Discharge Medication list on patient's Discharge Instruction sheet JANNIE HORVATH MD Dec 08, 2021 12:53
--- NOTE | 2021-12-08 14:56 | Progress Note - Surgery ---
Subjective Date Seen by a Provider: Dec 08, 2021 Time Seen by a Provider: 14:54 Subjective/Events-last exam No new issues or complaints. No pain. Wound vac in place. Denies fever sweats chills shortness of breath or chest pain. Objective Exam Vital Signs Date Time Temp Pulse Resp B/P (MAP) Pulse Ox O2 Delivery O2 Flow Rate FiO2 12/08/21 11:48 35.9 76 20 132/73 (92) 99 Room Air 12/08/21 08:00 37.2 83 18 127/58 (81) 98 Room Air 12/08/21 04:07 36.6 79 18 118/62 (80) 97 Room Air 12/07/21 23:18 36.4 85 20 135/70 (91) 96 Room Air 12/07/21 20:59 Room Air 12/07/21 20:37 36.6 89 18 164/75 (104) 94 Room Air 12/07/21 16:00 36.4 68 20 141/61 (87) 98 Room Air I & O 12/08/21 07:00 Intake Total 790 ml Output Total 2175 ml Balance -1385 ml Capillary Refill : Less Than 3 SecondsLess Than 3 Seconds General Appearance: No Apparent Distress, WD/WN HEENT: Normal ENT Inspection, Pharynx Normal Neck: Normal Inspection, Non Tender, Supple Respiratory: Chest Non Tender, No Accessory Muscle Use, No Respiratory Distress Cardiovascular: Regular Rate, Rhythm, No JVD, Systolic Murmur Peripheral Pulses: 0 Dorsalis Pedis (R), 0 Left Dors-Pedis (L); 2+ Radial Pulses (R), 2+ Radial Pulses (L) Gastrointestinal: normal bowel sounds, non tender, soft Extremity: No Calf Tenderness, No Pedal Edema, Other (RIGHT FOOT WITH WOUND VAC IN PLACE OVER THE SITE OF HER GREAT TOE AMPUTATION, CLAW TOES, wound vac taken off- clean healthy tissue no signs of infection) Neurologic/Psychiatric: Alert, Oriented x3 Skin: Normal Color, Warm/Dry, Other (right foot with amputation of great toe with wound vac in place) Lymphatic: No Adenopathy (Head and neck) Results Lab Laboratory Tests 12/07/21 15:26: Glucometer 153H 12/07/21 20:06: Glucometer 202H 12/08/21 04:49: Glucometer 108 12/08/21 10:53: Glucometer 230H Microbiology 12/07/21 Gram Stain - Final, Resulted 12/07/21 Wound Culture - Preliminary, Resulted No growth 12/05/21 MRSA Screen - Final, Complete MRSA not isolated 12/04/21 Blood Culture - Preliminary, Resulted No growth Assessment/Plan Assessment/Plan Assessment/Plan OSTEOMYELITIS RIGHT GREAT TOE DIABETES WITH FOOT ULCERATION CHRONIC HYPERTENSION DIABETES MELLITUS - INSULIN DEPENDENCE CHRONIC DIARRHEA ABDOMINAL PAIN WEAKNESS ANEMIA wet to dry until wound vac applied at half-way okstephan to bentley from surgical standpoint MILDRED GERMAIN DO Dec 08, 2021 14:56
[2021-12-08 15:26] VITALS: BP 132/73
== END 2021-12-08 15:58 | DRG 617 ==
LOC: EDUNIT# 14:45 → ER 14:46 → 4TH 16:25
PROVIDERS: ADMIT Family Medicine; ATTEND Family Medicine
PROC: 0Y6M0Z9 Detachment at Right Foot, Partial 1st Ray, Open Approach (ICD-10-PCS; principal; 2021-12-05 07:43)
DX: E11.69 Type 2 diabetes mellitus with other specified complication (principal); M86.8X7 Other osteomyelitis, ankle and foot; I10 Essential (primary) hypertension; K52.9 Noninfective gastroenteritis and colitis, unspecified; K21.9 Gastro-esophageal reflux disease without esophagitis; M19.90 Unspecified osteoarthritis, unspecified site; E11.621 Type 2 diabetes mellitus with foot ulcer; L97.519 Non-pressure chronic ulcer of other part of right foot with unspecified severity; Z20.822 Contact with and (suspected) exposure to COVID-19; R10.9 Unspecified abdominal pain; R53.1 Weakness; D64.9 Anemia, unspecified; Z85.3 Personal history of malignant neoplasm of breast; Z79.4 Long term (current) use of insulin; Z88.1 Allergy status to other antibiotic agents; Z88.0 Allergy status to penicillin; Z79.899 Other long term (current) drug therapy
CPT/HCPCS: 36415; 71045; 73630; 80048; 80053; 80202; 82728; 82947; 83540; 83550; 83605; 85007; 85027; 85610; 85730; 87040; 87070; 87081; 87205; 87635; 87804; 93926; 94664

== ENCOUNTER → 2021-12-15 | Outpatient (CLI) | payer MEDICARE ==
[~2021-12-15] MED LIST changes: +ACET325T49 PO; +AMLO-250 PO; +DOCU100C37 PO; +ENAL20TA16 PO; +INSU100V3 SC; +LACT1CAP39 PO; +LACT1CAP7 PO; +NPH,100V SC
== END ==
LOC: WOUNDCARE 09:27
PROVIDERS: ATTEND Family Medicine
DX: E11.621 Type 2 diabetes mellitus with foot ulcer (principal); L97.514 Non-pressure chronic ulcer of other part of right foot with necrosis of bone; E11.65 Type 2 diabetes mellitus with hyperglycemia; I70.235 Atherosclerosis of native arteries of right leg with ulceration of other part of foot; M86.071 Acute hematogenous osteomyelitis, right ankle and foot; D50.9 Iron deficiency anemia, unspecified
CPT/HCPCS: 11044; 87070; 87077; 87205; G0463

== ENCOUNTER → 2021-12-21 | Outpatient (CLI) | payer MEDICARE | LOC: WOUNDCARE 08:55 | PROVIDERS: ATTEND Family Medicine | DX: E11.52 Type 2 diabetes mellitus with diabetic peripheral angiopathy with gangrene (principal); E11.621 Type 2 diabetes mellitus with foot ulcer; E11.65 Type 2 diabetes mellitus with hyperglycemia; I70.261 Atherosclerosis of native arteries of extremities with gangrene, right leg; L97.514 Non-pressure chronic ulcer of other part of right foot with necrosis of bone; M86.071 Acute hematogenous osteomyelitis, right ankle and foot; D50.9 Iron deficiency anemia, unspecified | CPT/HCPCS: 11042; 11045; G0463 ==

== ENCOUNTER → 2021-12-28 | Outpatient (CLI) | payer MEDICARE | LOC: WOUNDCARE 09:53 | PROVIDERS: ATTEND Family Medicine | DX: E11.52 Type 2 diabetes mellitus with diabetic peripheral angiopathy with gangrene (principal); E11.622 Type 2 diabetes mellitus with other skin ulcer; E11.65 Type 2 diabetes mellitus with hyperglycemia; I70.261 Atherosclerosis of native arteries of extremities with gangrene, right leg; L97.514 Non-pressure chronic ulcer of other part of right foot with necrosis of bone; M86.071 Acute hematogenous osteomyelitis, right ankle and foot; D50.9 Iron deficiency anemia, unspecified | CPT/HCPCS: 11042; G0463 ==

== ENCOUNTER → 2022-01-04 | Outpatient (CLI) | payer MEDICARE | LOC: WOUNDCARE 09:58 | PROVIDERS: ATTEND Family Medicine | DX: E11.621 Type 2 diabetes mellitus with foot ulcer (principal); L97.514 Non-pressure chronic ulcer of other part of right foot with necrosis of bone; E11.65 Type 2 diabetes mellitus with hyperglycemia; I70.235 Atherosclerosis of native arteries of right leg with ulceration of other part of foot; M86.071 Acute hematogenous osteomyelitis, right ankle and foot; D50.9 Iron deficiency anemia, unspecified; E11.52 Type 2 diabetes mellitus with diabetic peripheral angiopathy with gangrene | CPT/HCPCS: 11042; G0463 ==

== ENCOUNTER → 2022-01-11 | Outpatient (CLI) | payer MEDICARE | LOC: WOUNDCARE 09:09 | PROVIDERS: ATTEND Family Medicine | DX: L97.514 Non-pressure chronic ulcer of other part of right foot with necrosis of bone (principal); E11.621 Type 2 diabetes mellitus with foot ulcer; E11.65 Type 2 diabetes mellitus with hyperglycemia; M86.071 Acute hematogenous osteomyelitis, right ankle and foot; D50.9 Iron deficiency anemia, unspecified; E11.52 Type 2 diabetes mellitus with diabetic peripheral angiopathy with gangrene | CPT/HCPCS: 11042; G0463 ==

== ENCOUNTER → 2022-01-11 | Outpatient (CLI) | payer MEDICARE ==
[~2022-01-11] MED LIST changes: +GADOTERATE 0.5 MMOL/ML (CLARISCAN) 20 ML VIAL IV ONE
--- NOTE | 2022-01-11 09:41 | Diagnostic Imaging Report ---
Exam: MRI right foot without and with intravenous contrast. Date: January 11, 2022. Indication: 86-year-old female, ulcer at the level of the great toe. Left foot pain. Comparison: Right foot radiographs December 04, 2021. Technique: Multiple pre and postcontrast MRI sequences of the right foot were obtained. Findings: There is absence of the distal half of the first metatarsal and absence of the first digit phalanges. There is a soft tissue ulcer medially located centered near the level of the absent portion of the first metatarsal. There is immediately underlying abnormal signal in the soft tissues including a nonenhancing signal tract consistent with extension of the ulcer. There is abnormal signal in the soft tissues directly contacting the distal aspect of the remaining portion of the first metatarsal. There is loss of normal T1 marrow signal, marrow edema, and enhancement within the first metatarsal in its remaining aspects consistent with osteomyelitis. The signal abnormalities in the first metatarsal extending approximately 6 mm distal to the proximal articulating surface. There is no additional identified site of osteomyelitis. There is no identified acute fracture. There is no evidence of osteonecrosis. There is mild midfoot arthritis. There is no joint effusion or evidence to suggest septic arthritis. The visualized portions of the anterior extensor tendons and peroneal tendons are intact. There is no evidence of tenosynovitis. There is diffuse severe fatty atrophy of the visualized musculature consistent with polyneuropathy. Impression: 1. Osteomyelitis of the first metatarsal with signal abnormalities extending 6 mm distal to the proximal articulating surface. 2. No evidence of tenosynovitis. 3. No evidence of septic arthritis. Dictated by: Dictated on workstation # [id number]
== END ==
LOC: RAD 08:08
PROVIDERS: ATTEND Family Medicine
DX: L97.514 Non-pressure chronic ulcer of other part of right foot with necrosis of bone (principal)
CPT/HCPCS: 73720

== ENCOUNTER → 2022-01-18 | Outpatient (CLI) | payer MEDICARE ==
[~2022-01-18] MED LIST changes: -GADOTERATE 0.5 MMOL/ML (CLARISCAN) 20 ML VIAL IV ONE
== END ==
LOC: WOUNDCARE 09:45
PROVIDERS: ATTEND Family Medicine
DX: E11.621 Type 2 diabetes mellitus with foot ulcer (principal); L97.514 Non-pressure chronic ulcer of other part of right foot with necrosis of bone; E11.65 Type 2 diabetes mellitus with hyperglycemia; E11.52 Type 2 diabetes mellitus with diabetic peripheral angiopathy with gangrene; I70.235 Atherosclerosis of native arteries of right leg with ulceration of other part of foot; D50.9 Iron deficiency anemia, unspecified; M86.471 Chronic osteomyelitis with draining sinus, right ankle and foot
CPT/HCPCS: 11042; G0463

== ENCOUNTER 2022-01-19 13:04 | Outpatient (CLI) | payer MEDICARE ==
[2022-01-19 13:15] VITALS: BP 145/73
== END 2022-01-19 14:00 ==
LOC: SDC 13:04
PROVIDERS: ATTEND Family Medicine
DX: M86.471 Chronic osteomyelitis with draining sinus, right ankle and foot (principal)
CPT/HCPCS: 36569; 76937; C1751

== ENCOUNTER → 2022-01-25 | Outpatient (CLI) | payer MEDICARE | LOC: WOUNDCARE 10:17 | PROVIDERS: ATTEND Family Medicine | DX: L97.514 Non-pressure chronic ulcer of other part of right foot with necrosis of bone (principal); E11.621 Type 2 diabetes mellitus with foot ulcer; E11.65 Type 2 diabetes mellitus with hyperglycemia; I70.235 Atherosclerosis of native arteries of right leg with ulceration of other part of foot; D50.9 Iron deficiency anemia, unspecified; M86.471 Chronic osteomyelitis with draining sinus, right ankle and foot; E11.52 Type 2 diabetes mellitus with diabetic peripheral angiopathy with gangrene | CPT/HCPCS: 11042; G0463 ==

== ENCOUNTER → 2022-02-01 | Outpatient (CLI) | payer MEDICARE | LOC: WOUNDCARE 09:44 | PROVIDERS: ATTEND Family Medicine | DX: E11.621 Type 2 diabetes mellitus with foot ulcer (principal); L97.514 Non-pressure chronic ulcer of other part of right foot with necrosis of bone; E11.65 Type 2 diabetes mellitus with hyperglycemia; I70.235 Atherosclerosis of native arteries of right leg with ulceration of other part of foot; D50.9 Iron deficiency anemia, unspecified; M86.471 Chronic osteomyelitis with draining sinus, right ankle and foot | CPT/HCPCS: 11042; G0463 ==

== ENCOUNTER → 2022-02-08 | Outpatient (CLI) | payer MEDICARE | LOC: WOUNDCARE 09:52 | PROVIDERS: ATTEND Family Medicine | DX: E11.621 Type 2 diabetes mellitus with foot ulcer (principal); L97.514 Non-pressure chronic ulcer of other part of right foot with necrosis of bone; E11.65 Type 2 diabetes mellitus with hyperglycemia; D50.9 Iron deficiency anemia, unspecified; I70.235 Atherosclerosis of native arteries of right leg with ulceration of other part of foot; M86.471 Chronic osteomyelitis with draining sinus, right ankle and foot; I96 Gangrene, not elsewhere classified | CPT/HCPCS: 11042; G0463 ==

== ENCOUNTER → 2022-02-15 | Outpatient (CLI) | payer MEDICARE | LOC: WOUNDCARE 09:48 | PROVIDERS: ATTEND Family Medicine | DX: E11.621 Type 2 diabetes mellitus with foot ulcer (principal); L97.514 Non-pressure chronic ulcer of other part of right foot with necrosis of bone; E11.65 Type 2 diabetes mellitus with hyperglycemia; I70.235 Atherosclerosis of native arteries of right leg with ulceration of other part of foot; D50.9 Iron deficiency anemia, unspecified; M86.471 Chronic osteomyelitis with draining sinus, right ankle and foot; E11.52 Type 2 diabetes mellitus with diabetic peripheral angiopathy with gangrene | CPT/HCPCS: 11042; G0463 ==

== ENCOUNTER → 2022-02-17 | Outpatient (CLI) | payer MEDICARE | LOC: LABNPT 21:38 | PROVIDERS: ATTEND Family Medicine | DX: Z01.89 Encounter for other specified special examinations (principal) | CPT/HCPCS: 87324; 87449; 87493 ==

== ENCOUNTER → 2022-02-22 | Outpatient (CLI) | payer MEDICARE | LOC: WOUNDCARE 10:03 | PROVIDERS: ATTEND Family Medicine | DX: L97.514 Non-pressure chronic ulcer of other part of right foot with necrosis of bone (principal); E11.621 Type 2 diabetes mellitus with foot ulcer; E11.65 Type 2 diabetes mellitus with hyperglycemia; D50.9 Iron deficiency anemia, unspecified; I70.235 Atherosclerosis of native arteries of right leg with ulceration of other part of foot; I96 Gangrene, not elsewhere classified | CPT/HCPCS: 11042; G0463 ==

== ENCOUNTER → 2022-03-04 | Outpatient (CLI) | payer MEDICARE | LOC: WOUNDCARE 13:46 | PROVIDERS: ATTEND Family Medicine | DX: L97.514 Non-pressure chronic ulcer of other part of right foot with necrosis of bone (principal); E11.621 Type 2 diabetes mellitus with foot ulcer; E11.65 Type 2 diabetes mellitus with hyperglycemia; I70.235 Atherosclerosis of native arteries of right leg with ulceration of other part of foot; D50.9 Iron deficiency anemia, unspecified; M86.471 Chronic osteomyelitis with draining sinus, right ankle and foot; E11.52 Type 2 diabetes mellitus with diabetic peripheral angiopathy with gangrene | CPT/HCPCS: 15275; G0463 ==

== ENCOUNTER → 2022-03-12 | Outpatient (CLI) | payer MEDICARE | LOC: WOUNDCARE 10:52 | PROVIDERS: ATTEND Family Medicine | DX: E11.621 Type 2 diabetes mellitus with foot ulcer (principal); L97.514 Non-pressure chronic ulcer of other part of right foot with necrosis of bone; E11.65 Type 2 diabetes mellitus with hyperglycemia; I70.235 Atherosclerosis of native arteries of right leg with ulceration of other part of foot; D50.9 Iron deficiency anemia, unspecified; M86.471 Chronic osteomyelitis with draining sinus, right ankle and foot; E11.52 Type 2 diabetes mellitus with diabetic peripheral angiopathy with gangrene; I96 Gangrene, not elsewhere classified | CPT/HCPCS: 15275; G0463 ==

== ENCOUNTER → 2022-03-17 | Outpatient (CLI) | payer MEDICARE | LOC: WOUNDCARE 13:56 | PROVIDERS: ATTEND Family Medicine | DX: E11.621 Type 2 diabetes mellitus with foot ulcer (principal); L97.214 Non-pressure chronic ulcer of right calf with necrosis of bone; E11.65 Type 2 diabetes mellitus with hyperglycemia; I70.235 Atherosclerosis of native arteries of right leg with ulceration of other part of foot; D50.9 Iron deficiency anemia, unspecified; M86.471 Chronic osteomyelitis with draining sinus, right ankle and foot; E11.52 Type 2 diabetes mellitus with diabetic peripheral angiopathy with gangrene | CPT/HCPCS: 15275; G0463 ==

== ENCOUNTER → 2022-03-17 | Outpatient (CLI) | payer MEDICARE ==
[~2022-03-17] MED LIST changes: +GADOTERATE 0.5 MMOL/ML (CLARISCAN) 20 ML VIAL IV ONE
--- NOTE | 2022-03-17 15:09 | Diagnostic Imaging Report ---
PROCEDURE: MR imaging right lower extremity with and without contrast. TECHNIQUE: Multiplanar, multisequence pre and post contrast-enhanced MR imaging of the right lower extremity was accomplished. INDICATION: Ulcer at the 1st great toe in the right foot. COMPARISON: 01/11/2022. FINDINGS: There has been prior amputation of the great toe at the mid 1st metatarsal. There is mild edema at the 1st metatarsal stump with a small amount of T1 weighted marrow replacement. There is mild associated enhancement. There are degenerative changes in the midfoot and in the toes. 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 The 2nd and 3rd distal phalanges demonstrate bone marrow edema and T1-weighted hypointensity as well. No erosions are seen. No acute fracture is seen. There appears to be enhancing edema in the second toe with mild edema at the superficial soft tissues dorsal to the foot. There is enhancement and edema in the soft tissues distal to the metatarsal stump. No rim-enhancing fluid collection is seen. There is generalized muscular atrophy, which is likely neurogenic. IMPRESSION: 1. Amputation at the 1st metatarsal with findings concerning for mild or early osteomyelitis at the stump. 2. Abnormal signal at the 2nd toe distal phalanx and possibly the 3rd toe distal phalanx, which is compatible with osteomyelitis. Please correlate with clinical findings. 3. Enhancing edema in the right foot, particularly distal to the 1st metatarsal stump, with no rim-enhancing fluid collection. Dictated by: Dictated on workstation # [id number]
== END ==
LOC: RAD 13:15
PROVIDERS: ATTEND Family Medicine
DX: L97.514 Non-pressure chronic ulcer of other part of right foot with necrosis of bone (principal)
CPT/HCPCS: 73720

== ENCOUNTER → 2022-03-24 | Outpatient (CLI) | payer MEDICARE ==
[~2022-03-24] MED LIST changes: -GADOTERATE 0.5 MMOL/ML (CLARISCAN) 20 ML VIAL IV ONE
== END ==
LOC: WOUNDCARE 14:27
PROVIDERS: ATTEND Family Medicine
DX: L97.514 Non-pressure chronic ulcer of other part of right foot with necrosis of bone (principal); E11.621 Type 2 diabetes mellitus with foot ulcer; E11.65 Type 2 diabetes mellitus with hyperglycemia; I70.235 Atherosclerosis of native arteries of right leg with ulceration of other part of foot; D50.9 Iron deficiency anemia, unspecified; M86.471 Chronic osteomyelitis with draining sinus, right ankle and foot; M62.81 Muscle weakness (generalized); E11.52 Type 2 diabetes mellitus with diabetic peripheral angiopathy with gangrene; R26.89 Other abnormalities of gait and mobility
CPT/HCPCS: 15275; G0463

== ENCOUNTER → 2022-03-31 | Outpatient (CLI) | payer MEDICARE | LOC: WOUNDCARE 14:31 | PROVIDERS: ATTEND Family Medicine | DX: E11.621 Type 2 diabetes mellitus with foot ulcer (principal); L97.514 Non-pressure chronic ulcer of other part of right foot with necrosis of bone; E11.65 Type 2 diabetes mellitus with hyperglycemia; I70.235 Atherosclerosis of native arteries of right leg with ulceration of other part of foot; D50.9 Iron deficiency anemia, unspecified; M86.40 Chronic osteomyelitis with draining sinus, unspecified site | CPT/HCPCS: 11042; A6021; A6212; G0463 ==